=== PATIENT | male | born 1950 | race Caucasian/White ===

== ENCOUNTER 2019-02-13 13:43 | Inpatient (IN) | payer MEDICARE, OTHER ==
[~2019-02-13] VITALS: Ht 152.4 cm; Wt 99.1 kg
[2019-02-13] MEDS ORDERED: ATOR10 PO (14:31)
[2019-02-13] MEDS ORDERED: CETI5 PO (14:32)
[2019-02-13] MEDS ORDERED: CITA20 PO (14:32)
[2019-02-13] MEDS ORDERED: Vitamin D400 UNI2 PO (14:32)
[2019-02-13] MEDS ORDERED: EPIPEN0.3 MG/0.3 SC (14:33)
[2019-02-13] MEDS ORDERED: DOCU100 PO (14:33)
[2019-02-13] MEDS ORDERED: VITAMIN B-121000 MCG PO (14:33)
[2019-02-13] MEDS ORDERED: Flonase 0.05% N16 GM (14:34)
[2019-02-13] MEDS ORDERED: GABA400 PO (14:34)
[2019-02-13] MEDS ORDERED: FISH OIL 1,001000 MG PO (14:34)
[2019-02-13] MEDS ORDERED: OMEPRAZOLE20 MG PO (14:35)
[2019-02-13] MEDS ORDERED: ALLERGY EYE DRO10 M1 BOTHEYES (14:36)
[2019-02-13] MEDS ORDERED: IBUP600 PO (14:37)
[2019-02-13] MEDS ORDERED: Pseudoephedrine30 MG PO (14:37)
[2019-02-13] MEDS ORDERED: B-1100 MG PO (14:38)
[2019-02-13] MEDS ORDERED: TRAZ100 PO (14:38)
[2019-02-13] MEDS ORDERED: SENN187 PO (14:38)
[2019-02-13] MEDS ORDERED: ASPI325 PO (14:39)
[2019-02-13] MEDS ORDERED: VERA180ER PO (14:39)
[2019-02-13 15:31] LABS: BASOPHILS ABSOLUTE AUTO 0.04 K/mm3 (0.00-0.23); BASOPHILS PERCENT AUTO 1 % (0-2); EOSINOPHILS ABSOLUTE AUTO 0.09 K/mm3 (0.00-0.68); EOSINOPHILS PERCENT AUTO 1 % (0-6); Hemoglobin 12.6 g/dL (13.5-17.5); IMMATURE GRAN ABSOLUTE AUTO 0.01 K/mm3 (0.00-0.10); IMMATURE GRAN PERCENT AUTO 0 % (0-1); LYMPHOCYTES PERCENT AUTO 25 % (21-46); MONOCYTES ABSOLUTE AUTO 0.46 K/mm3 (0.16-1.47); MONOCYTES PERCENT AUTO 7 % (4-13); Mean Corpuscular HGB 32.4 pg (26.0-34.0); Mean Corpuscular HGB Conc 32.3 g/dL (31.5-36.5); Mean Corpuscular Volume 100 fL (80-100); Mean Platelet Volume 9.8 fL (9.1-12.4); NEUTROPHILS ABSOLUTE AUTO 4.64 K/mm3 (1.96-9.15); NEUTROPHILS PERCENT AUTO 67 % (41-73); Platelet Count 168 K/mm3 (150-400); RDW Coefficient Variation 14.5 % (11.7-14.2); Red Blood Cell Count 3.89 M/mm3 (4.30-5.90); White Blood Cell Count 6.94 K/mm3 (4.00-11.30)
[2019-02-13 16:52] LABS: Anion Gap 4 mmol/L (6-16); Blood Urea Nitrogen 20 mg/dL (8-24); Bun/Creatinine Ratio 16.3 (12.0-20.0); CO2, Blood 25 mmol/L (21-32); Calcium, Blood 8.4 mg/dL (8.5-10.1); Chloride, Blood 113 mmol/L (98-108); Creatinine, Blood 1.23 mg/dL (0.60-1.20); Glomerular Filtration Rate >60 (60-); Glucose, Blood 90 mg/dL (70-99); Potassium, Blood 4.1 mmol/L (3.5-5.5); Sodium, Blood 142 mmol/L (136-145)
[2019-02-13 17:57] LABS: International Normalized Ratio 0.98; Prothrombin Time Results 10.4 Sec (9.7-11.5)
[2019-02-13 22:00] LABS: CHOL/HDL RATIO 4.5; Cholesterol 203 mg/dL (50-200); HDL Cholesterol 45 mg/dL (>39); LDL/HDL RATIO 3.3; Low Density Lipoprotein Chol 151 mg/dL (0-110); Triglycerides 37 mg/dL (30-160); Very Low Density Lipoprot Chol 7 mg/dL (6-32)
[2019-02-14 04:21] LABS: Hematocrit 37.9 % (37.0-53.0); Hemoglobin 12.4 g/dL (13.5-17.5); Mean Corpuscular HGB 32.7 pg (26.0-34.0); Mean Corpuscular HGB Conc 32.7 g/dL (31.5-36.5); Mean Corpuscular Volume 100 fL (80-100); Mean Platelet Volume 10.4 fL (9.1-12.4); Platelet Count 151 K/mm3 (150-400); RDW Coefficient Variation 14.5 % (11.7-14.2); RDW Standard Deviation 53.7 fL (35.1-46.3); Red Blood Cell Count 3.79 M/mm3 (4.30-5.90); White Blood Cell Count 6.93 K/mm3 (4.00-11.30)
[2019-02-14 04:45] LABS: Anion Gap 7 mmol/L (6-16); Blood Urea Nitrogen 19 mg/dL (8-24); Bun/Creatinine Ratio 16.1 (12.0-20.0); CO2, Blood 26 mmol/L (21-32); Calcium, Blood 8.2 mg/dL (8.5-10.1); Chloride, Blood 110 mmol/L (98-108); Creatinine, Blood 1.18 mg/dL (0.60-1.20); Glomerular Filtration Rate >60 (60-); Glucose, Blood 97 mg/dL (70-99); Potassium, Blood 3.9 mmol/L (3.5-5.5); Sodium, Blood 143 mmol/L (136-145)
--- NOTE | 2019-02-14 05:42 | NUR ---
SHIFT SUMMARY PT SLEEPING IN ROOM COMFORTABLY. NO ACUTE CHANGES IN STATUS SINCE ADMIT. PT SLEPT WELL ON CPAP TOLERATED WELL T/O NIGHT. HEPARIN GTT STARTED UPON ARRIVAL, INFUSING IN PIV TO LAC AT 14U/KG/HR, AND 19.6ML/HR. PT HAD NO COMPLAINTS OF CP AFTER MEDICATIONS AFTER ARRIVAL. C/O HEADACHE, MEDICATED PER EMAR. RESP EVEN UNLABORED ON RA W/ SATS >95%. DENIES OTHER NEEDS AT THIS TIME. CALL LIGHT IN REACH. PT IND IN ROOM.
--- NOTE | 2019-02-14 10:48 | NUR ---
Echocardiogram completed.
--- NOTE | 2019-02-14 17:29 | NUR ---
PT AOX4 AND COOPERATIVE OF CARE. PT REPORTED START OF SHIFT A FEELING OF INDIGETSTION AND WAS DUE FOR NITRO PASTE. DUE TO LOW BP OF 94/54 DANELLE DECREASED DOSE FROM 2" TO 1" OF NITRO PASTE. PT DID NOT REPORT ANYMORE TIGHTNESS OR INDIGESTION FOR THE REST OF SHIFT. PT TREATED FOR HEADACHE PER EMAR. NO DISTRESS THROUGHOUT SHIFT AND TAKEN TO ANGIO AROUND 1710.
--- NOTE | 2019-02-14 18:39 | NUR ---
RECIEVED PT AT 1835. R WRIST BAND CHECKED NO BLEEDING SKINN SOFT AT CUFF. PT A0X4 AND COOPERATIVE OF CARE. FAMILY PRESENT AT BEDSIDE.
--- NOTE | 2019-02-15 00:30 | NUR ---
TR BAND FULLY DELFATED AT THIS TIME.
--- NOTE | 2019-02-15 06:26 | NUR ---
SHIFT SUMMARY PT SLEEPING IN ROOM COMFORTABLY AT THIS TIME. NO ACUTE CHANGES IN STATUS T/O NIGHT. TR BAND WAS MONITORED AND FULLY DEFLATED BY 0030. SITE WNL, NO HEMATOMAS NOTED, SENSATION INTACT. PT DENIES PAIN TO SITE. PT SLEPT WELL T/O NIGHT, DENIED ANY PAIN AFTER MEDICATION FOR SEBASTIAN. RESP EVEN UNLABORE DON RA W/ SATS >92%. PT INDEPENDENT IN ROOM. CALL LIGHT IN REACH.
--- NOTE | 2019-02-15 07:45 | NUR ---
PT QUITE PLEASANT COOP TALKATIVE. A/O. DENIES PAIN. H/R REG, NO MURMER NOTED. PER TELE, S DOMINIQUE BBB AT 56. LUNGS CLEAR, RESP EASY, UNLABORED. ON RA. BT X4 LAST BM THIS AM. VOIDS PER BATHROOM. INDEPENDANT. PT TR BAND SITE CDI, COVERED WITH CLEAR DRESSING. LIGHT REDNESS NOTED. FAY RN STATES HAS NOT CHANGED. BED IN LOW POSITION, CALL LITE IN REACH, CALLS APPROP.
[2019-02-15] MEDS ORDERED: AMLO5 PO (10:25)
--- NOTE | 2019-02-15 12:43 | NUR ---
1200 PT C/O BEING LIGHT HEADED. RECHECK V/S. STABLE. TELE REMOVED FOR DISCHARGE. HEART MONITOR HAS BEEN PLACED BY H/C. PT PUSHED BUTTON TO RECORD. CALLED DR MCCLENDON. F STATES WITH THE AORTIC STENOSIS AND PENDING VALVE, SYMPTOS ARE TO BE EXPECTED. NO NEW ORDERS, OKAY DISCHARGE.
--- NOTE | 2019-02-15 13:34 | NUR ---
DISCHARGE REVIEWED WITH PT . HE VERBALIZED UNDERSTANDING OF MEDS AND APPOINTMENTS. READ THROUGH D/C ON RADIAL SITE. PT VERBALIZED UNDERSTANDING. ARM BOARD IN PLACE. IV X2 REMOVED INTACT. TELE REMOVED. PT WHEELED TO DOOR BY [id number]
== END 2019-02-15 13:36 | disposition home or self-care (01) | DRG 282 ==
LOC: ER 13:43 → PCU 17:56
PROVIDERS: Emergency Medicine; Nurse Practitioner Acute Care; ADMIT Hospitalist
PROC: B2111ZZ Fluoroscopy of Multiple Coronary Arteries using Low Osmolar Contrast (ICD-10-PCS; principal; 2019-02-14)
DX: I21.A1 Myocardial infarction type 2 (principal); I10 Essential (primary) hypertension; I35.0 Nonrheumatic aortic (valve) stenosis; G47.33 Obstructive sleep apnea (adult) (pediatric); E78.5 Hyperlipidemia, unspecified; I48.0 Paroxysmal atrial fibrillation; I44.7 Left bundle-branch block, unspecified; K21.9 Gastro-esophageal reflux disease without esophagitis; G89.4 Chronic pain syndrome; N40.0 Benign prostatic hyperplasia without lower urinary tract symptoms; Z79.82 Long term (current) use of aspirin; I44.0 Atrioventricular block, first degree
CPT/HCPCS: 36415; 80048; 80061; 83735; 84484; 85025; 85027; 85610; 85730; 93005; 93010; 93306; 93454; 94660; 94762; 99152; 99153; 99285-25; A9270; C1769; C1894; J1644; J2250; J3010; J7030; Q9967

== ENCOUNTER 2020-09-22 09:11 | Inpatient (IN) | payer MEDICARE, OTHER ==
[~2020-09-22] VITALS: Ht 165.1 cm; Wt 109.3 kg
[~2020-09-22 09:11] MED LIST: ALLERGY EYE DRO10 M1 BOTHEYES; AMLO5 PO; ASPI325 PO; ATOR10 PO; B-1100 MG PO; CITA20 PO; DOCU100 PO; EPIPEN0.3 MG/0.3 SC; FISH OIL 1,001000 MG PO; Flonase 0.05% N16 GM; GABA400 PO; IBUP600 PO; OMEPRAZOLE20 MG PO; Pseudoephedrine30 MG PO; SENN187 PO; TRAZ100 PO; VERA180ER PO; VITAMIN D31000 UNI1 PO; Vitamin B-121000 MCG PO; ZYRTEC10 M2 PO
[2020-09-22] MEDS ORDERED: DOXY100 PO (09:38)
[2020-09-22 09:48] LABS: Hematocrit 44.2 % (37.0-53.0); Hemoglobin 14.3 g/dL (13.5-17.5); Mean Corpuscular HGB 31.2 pg (26.0-34.0); Mean Corpuscular HGB Conc 32.4 g/dL (31.5-36.5); Mean Corpuscular Volume 97 fL (80-100); Mean Platelet Volume 10.1 fL (9.1-12.4); Platelet Count 135 K/mm3 (150-400); RDW Coefficient Variation 13.4 % (11.7-14.2); RDW Standard Deviation 48.1 fL (35.1-46.3); Red Blood Cell Count 4.58 M/mm3 (4.30-5.90); White Blood Cell Count 4.84 K/mm3 (4.00-11.30)
[2020-09-22 10:00] LABS: Alanine Aminotransfer (ALT/SGP 30 U/L (12-78); Albumin, Blood 3.1 g/dL (3.4-5.0); Albumin/Globulin Ratio 0.7 (0.8-1.8); Alk Phos 56 U/L (50-136); Anion Gap 7 mmol/L (6-16); Aspartate Aminotrans (AST/SGOT 75 U/L (12-37); Bilirubin, Total 0.5 mg/dL (0.1-1.0); Blood Urea Nitrogen 21 mg/dL (8-24); Bun/Creatinine Ratio 17.6 (12.0-20.0); CO2, Blood 24 mmol/L (21-32); Calcium, Blood 8.3 mg/dL (8.5-10.1); Chloride, Blood 106 mmol/L (98-108); Creatinine, Blood 1.19 mg/dL (0.60-1.20); Globulin, Blood 4.2 g/dL (2.2-4.0); Glomerular Filtration Rate >60 (60-); Glucose, Blood 125 mg/dL (70-99); Sodium, Blood 137 mmol/L (136-145); Total Protein, Blood 7.3 g/dL (6.4-8.2)
[2020-09-22 10:07] LABS: BAND PERCENT MAN 2 % (0-8); BASOPHILS ABSOLUTE MAN 0.04 K/mm3 (0.00-0.23); BASOPHILS PERCENT MAN 1 % (0-2); EOSINOPHILS PERCENT MAN 0 % (0-6); LYMPHOCYTES ABSOLUTE MAN 0.62 K/mm3 (0.84-5.20); LYMPHOCYTES PERCENT MAN 13 % (21-46); MONOCYTES ABSOLUTE MAN 0.09 K/mm3 (0.16-1.47); MONOCYTES PERCENT MAN 2 % (4-13); NEUTROPHILS ABSOLUTE MAN 4.06 K/mm3 (1.96-9.15); SEG NEUTROPHILS PERCENT MAN 82 % (41-73); TOTAL CELLS COUNTED 100
[2020-09-22] MEDS ORDERED: KLOR-CON 1010 MEQ PO (11:38)
[2020-09-22] MEDS ORDERED: FUROSEMIDE20 MG PO (11:39)
[2020-09-22] MEDS ORDERED: MIRALAX17 GM PO (11:40)
[2020-09-22] MEDS ORDERED: DOCUSATE SODIU250 MG PO (11:40)
[2020-09-22] MEDS ORDERED: OMEPRAZOLE MAGN20 M1 PO (11:41)
[2020-09-22] MEDS ORDERED: METOPROLOL TART25 MG PO (11:41)
[2020-09-22] MEDS ORDERED: NEURONTIN400 M1 PO (11:41)
--- NOTE | 2020-09-22 15:18 | NUR ---
PT ARRIVED IN THE UNIT FROM ED VIA STRETCHER, REPORT RECEIVED FROM GUTIERREZ MENCHACA. PT WAS ABLE TO STAND TRANSFER SBA TO BED, GETS EASILY SOB/ WITH MINIMAL EXERTION DESATS TO LOW 80'S, RECOVERS BACK EASILY CURRENTLY AT 6L OF O2 VIA NC. PT REFUSES TO PRONE DUE TO BACK PAIN THAT REQUIRES SURGERY SOON BUT PT WAS ABLE TO TOLERATE ON HIS LEFT SIDE WITH PILLOWS ON BACK HOB ATLEAST 45 DEGREES. PT IS ALERT AND ORIENTED AT BASELINE, COOPERATIVE. VITALS HRR NSR AT 70'S, BP SYSTOLIC 130'S, AFEBRILE. NS RUNNING AT 75MLS/HR X1 BAG. PT HAS WOUND DRESSING ON THE BACK OF LEFT HEEL, PT STATED ITS SURGICAL RELATED. WILL ASSESS AND TAKE PICS BEFORE THE ENDS OF SHIFT. PT IS NOW RESTING IN BED WAS INSTRUCTED TO USE CALL LIGHT FOR HELP, BED ALARM ON FOR SAFETY. WILL MONITOR PT UNTIL THE END OF SHIFT
--- NOTE | 2020-09-22 18:28 | NUR ---
PT WAS SWITCH TO HI LIZA NASAL CANNULA CURRENTLY AT 12L AT THIS TIME, PT DESATURATES PRETTY QUICK WITH MINIMAL EXERTION, PT NOW TOLERATING 12L SATS REMAINED ABOVE 90%, PT HAS DRY NON PRODUCTIVE COUGH, HOB ELEVATED ABOVE 45 DEGREES. PT IS NOW EATING DINNER WAS INSTRUCTED TO TAKE HIS TIME TAKE SOME DEEP BREATHS WITH EACH BITE. PT IS COMPLIANT WITH INSTRUCTIONS. NO OTHER ISSUES REPORTED. WILL MONITOR PT UNTIL END OF SHIFT.
[2020-09-23 04:37] LABS: BASOPHILS PERCENT AUTO 0 % (0-2); EOSINOPHILS PERCENT AUTO 0 % (0-6); Hematocrit 37.5 % (37.0-53.0); Hemoglobin 12.5 g/dL (13.5-17.5); IMMATURE GRAN ABSOLUTE AUTO 0.02 K/mm3 (0.00-0.10); IMMATURE GRAN PERCENT AUTO 0 % (0-1); LYMPHOCYTES ABSOLUTE AUTO 0.98 K/mm3 (0.84-5.20); LYMPHOCYTES PERCENT AUTO 17 % (21-46); MONOCYTES ABSOLUTE AUTO 0.27 K/mm3 (0.16-1.47); MONOCYTES PERCENT AUTO 5 % (4-13); Mean Corpuscular HGB Conc 33.3 g/dL (31.5-36.5); Mean Corpuscular Volume 96 fL (80-100); Mean Platelet Volume 9.9 fL (9.1-12.4); NEUTROPHILS ABSOLUTE AUTO 4.42 K/mm3 (1.96-9.15); NEUTROPHILS PERCENT AUTO 78 % (41-73); Platelet Count 146 K/mm3 (150-400); RDW Coefficient Variation 13.7 % (11.7-14.2); RDW Standard Deviation 48.4 fL (35.1-46.3); Red Blood Cell Count 3.91 M/mm3 (4.30-5.90); White Blood Cell Count 5.69 K/mm3 (4.00-11.30)
[2020-09-23 04:59] LABS: Alanine Aminotransfer (ALT/SGP 27 U/L (12-78); Albumin, Blood 2.5 g/dL (3.4-5.0); Albumin/Globulin Ratio 0.7 (0.8-1.8); Alk Phos 43 U/L (50-136); Anion Gap 7 mmol/L (6-16); Aspartate Aminotrans (AST/SGOT 76 U/L (12-37); Bilirubin, Total 0.4 mg/dL (0.1-1.0); Blood Urea Nitrogen 24 mg/dL (8-24); Bun/Creatinine Ratio 22.9 (12.0-20.0); CO2, Blood 22 mmol/L (21-32); Calcium, Blood 7.7 mg/dL (8.5-10.1); Chloride, Blood 110 mmol/L (98-108); Creatinine, Blood 1.05 mg/dL (0.60-1.20); Globulin, Blood 3.6 g/dL (2.2-4.0); Glomerular Filtration Rate >60 (60-); Glucose, Blood 124 mg/dL (70-99); Magnesium, Blood 2.1 mg/dL (1.6-2.4); Potassium, Blood 4.1 mmol/L (3.5-5.5); Sodium, Blood 139 mmol/L (136-145); Total Protein, Blood 6.1 g/dL (6.4-8.2)
--- NOTE | 2020-09-23 05:58 | NUR ---
SHIFT SUMMARY PT RESTED WELL THROUGH NIGHT. ALERT AND ORIENTED - ABLE TO MAKE NEEDS KNOWN. TELE NSR. PLACED ON BIPAP D/T WORSENING RESP STATUS. DESATTING TO 70%, PLACED ON CPAP, BUT NOT RECOVERING/MAINTAINING SATS. RESPIRATORY PLACD PT ON BIPAP - PT SATS REMAINED IN LOW 90'S%. STAND AT BEDSIDE TO USE URINAL - BEDPAN FOR BM. NO C/O PAIN. VSS. CALL LIGHT WITHIN REACH, BED IN LOWEST POSITION. WILL CONTINUE TO MONITOR.
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
[2020-09-24 03:56] LABS: Hemoglobin 13.4 g/dL (13.5-17.5); Mean Corpuscular HGB Conc 32.7 g/dL (31.5-36.5); Mean Corpuscular Volume 98 fL (80-100); Platelet Count 184 K/mm3 (150-400); RDW Coefficient Variation 13.7 % (11.7-14.2); RDW Standard Deviation 49.8 fL (35.1-46.3); Red Blood Cell Count 4.19 M/mm3 (4.30-5.90); White Blood Cell Count 4.54 K/mm3 (4.00-11.30)
[2020-09-24 04:15] LABS: Albumin, Blood 2.5 g/dL (3.4-5.0); Anion Gap 6 mmol/L (6-16); Blood Urea Nitrogen 27 mg/dL (8-24); CO2, Blood 24 mmol/L (21-32); Calcium, Blood 8.4 mg/dL (8.5-10.1); Chloride, Blood 111 mmol/L (98-108); Glomerular Filtration Rate >60 (60-); Glucose, Blood 107 mg/dL (70-99); Phosphorus, Blood 3.2 mg/dL (2.5-4.9); Potassium, Blood 4.3 mmol/L (3.5-5.5); Sodium, Blood 141 mmol/L (136-145)
[2020-09-24 05:29] LABS: PCO2 Arterial 30.5 mmHg (35-45); PO2 Arterial 72.1 mmHg (80-100); pH Blood Arterial 7.46 (7.35-7.45)
--- NOTE | 2020-09-24 05:41 | NUR ---
SHIFT SUMMARY PT SLEPT T/O SHIFT. PT WORE BIPAP T/O SHIFT AT 80% FIO2. PT ABLE TO TOLERATE STANDING TO USE COMMODE. PT HAD DIARRHEA ONCE AT BEGINNING OF SHIFT. PT ABLE TO TURN SELF IN BED NEEDED. HR REMAINED STABLE. OXYGEN ABOVE 92%. BP STABLE. PT REPORTS NO CP OR PRESSURE. PT ALERT AND ORIENTED X 4. WILL CONTINUE TO MONITOR UNTIL REPORT GIVEN TO DAYSHIFT RN.
--- NOTE | 2020-09-24 16:07 | NUR ---
TRANSFER IN PT TRANSFERED TO ICU 11 AT 1535 VIA BED. PT IS AWAKE, ALERT, AND ORIENTED. PT DENIES SOB AT REST. PT ON AIRVO AT 60L, FIO2 72%. VITAL SIGNS STABLE. PT WITH HARSH COUGH AND COARSE LS IN BASES. PT COMPLAINS OF CHRONIC BACK PAIN AND NUMBNESS TO BLE'S. PT MAEW. IV TO LEFT AC SALINE LOCKED. WILL CONTINUE TO MONITOR.
--- NOTE | 2020-09-24 18:15 | NUR ---
SHIFT SUMMARY NO ACUTE CHANGES THIS AFTERNOON. PT REMAINS AWAKE, ALERT, AND ORIENTED. PT VITAL SIGNS REMAINS STABLE WITH PT AT REST. PT WITH SPO2 DROPPING TO 70'S WITH COUGHING FITS. OTHERWISE SPO2 REMAINS >90% WITH PT ON BIPAP 27/07, FIO2 75%. POWERGLIDE TO NEENA PLACED, SALINE LOCKED AT THIS TIME. PT WITH URINAL AT BEDSIDE. NO FAMILY IN ROOM. WILL CONTINUE TO MONITOR AND REPORT OFF TO ONCOMING RN.
--- NOTE | 2020-09-24 20:53 | NUR ---
ASSUMPTION OF CARE PT RESTING IN BED, AROUSES TO VERBAL STIMULI, ORIENTED TO SELF, LOCATION, EVENT AND FOLLOWING DIRECTIONS. PT ON BIPAP /, FIO2 75%, TOLERATES BREAKS FROM BIPAP ON AIRVO 60L AND FIO2 92%. MONITOR SHOWS SINUS RHYTHM WITH BBB, HR 60'S, BP STABLE. POOR PO INTAKE, TOLERATING FLUIDS, SWALLOWS PILLS WHOLE. PT TO BS, SBA, WITH LOOSE STOOL, VOIDS INDEPENDENTLY USING URINAL AT BEDSIDE. PT REPORTS MILD LOW BACK PAIN, RELEIVED WITH REPOSITIONING. CALL LIGHT WITHIN REACH.
[2020-09-25 04:00] LABS: BASOPHILS ABSOLUTE AUTO 0.01 K/mm3 (0.00-0.23); BASOPHILS PERCENT AUTO 0 % (0-2); EOSINOPHILS ABSOLUTE AUTO 0.01 K/mm3 (0.00-0.68); EOSINOPHILS PERCENT AUTO 0 % (0-6); Hemoglobin 13.3 g/dL (13.5-17.5); Mean Corpuscular HGB 31.4 pg (26.0-34.0); Mean Corpuscular HGB Conc 32.4 g/dL (31.5-36.5); Mean Corpuscular Volume 97 fL (80-100); Mean Platelet Volume 9.8 fL (9.1-12.4); Platelet Count 219 K/mm3 (150-400); RDW Coefficient Variation 13.5 % (11.7-14.2); RDW Standard Deviation 48.1 fL (35.1-46.3); Red Blood Cell Count 4.24 M/mm3 (4.30-5.90); White Blood Cell Count 5.93 K/mm3 (4.00-11.30)
[2020-09-25 04:01] LABS: IMMATURE GRAN ABSOLUTE AUTO 0.04 K/mm3 (0.00-0.10); IMMATURE GRAN PERCENT AUTO 1 % (0-1); LYMPHOCYTES ABSOLUTE AUTO 1.32 K/mm3 (0.84-5.20); LYMPHOCYTES PERCENT AUTO 22 % (21-46); MONOCYTES ABSOLUTE AUTO 0.25 K/mm3 (0.16-1.47); MONOCYTES PERCENT AUTO 4 % (4-13); NEUTROPHILS PERCENT AUTO 72 % (41-73)
[2020-09-25 04:22] LABS: Alanine Aminotransfer (ALT/SGP 30 U/L (12-78); Albumin, Blood 2.6 g/dL (3.4-5.0); Albumin/Globulin Ratio 0.7 (0.8-1.8); Alk Phos 55 U/L (50-136); Anion Gap 6 mmol/L (6-16); Aspartate Aminotrans (AST/SGOT 70 U/L (12-37); Bilirubin, Total 0.6 mg/dL (0.1-1.0); Blood Urea Nitrogen 24 mg/dL (8-24); Bun/Creatinine Ratio 24.1 (12.0-20.0); CO2, Blood 25 mmol/L (21-32); Calcium, Blood 8.3 mg/dL (8.5-10.1); Chloride, Blood 109 mmol/L (98-108); Globulin, Blood 3.5 g/dL (2.2-4.0); Glomerular Filtration Rate >60 (60-); Glucose, Blood 90 mg/dL (70-99); Magnesium, Blood 2.1 mg/dL (1.6-2.4); Phosphorus, Blood 3.2 mg/dL (2.5-4.9); Potassium, Blood 4.3 mmol/L (3.5-5.5); Sodium, Blood 140 mmol/L (136-145); Total Protein, Blood 6.1 g/dL (6.4-8.2)
--- NOTE | 2020-09-25 06:25 | NUR ---
SHIFT SUMMARY PT RESTED T/O SHIFT, AROUSES TO VERBAL STIMULI, REMAINS ORIENTED x4. PT REMAINS ON BIPAP 16/11 FIO2 90-100%, TOLERATING ONLY BREIF 10-15 MINUTE BREAKS ON THE AIRVO @ 60L FIO2 93%. PT CONTINUES TO HAVE DRY HACKING COUGH, OCCASSIONAL COUGHING FITS IN WHICH O2 SATURATIONS DECREASE TO 50'S WITH SLOW RECOVERY, PRN COUGHING MEDICATIONS PROVIDED WITH SOME RELIEF. PT TOLERATING PO FLUIDS, VOIDING IN URINAL WITH ASSISTANCE. PT DEL ROSARIO, REPOSITIONS SELF IN BED. CALL LIGHT WITHIN REACH.
--- NOTE | 2020-09-25 08:00 | NUR ---
ASSUMED CARE REPORT RECIEVED. PT IS INITIALLY RESTING IN BED WITH BIPAP IN PLACE. PT UP TO BSC WITH MANAGER OF EMPLOYEE RELATIONS ASSISTANCE, THEN UP TO BEDSIDE CHAIR. PT IS ALERT AND ORIENTED. PT ANSWERS QUESTIONS APPROPRIATELY. PT COMPLAINS OF CHRONIC DISCOMFORT TO LOWER BACK. PT PLACED ON AIRVO AT THIS TIME, 60L, FIO2 80%. VITAL SIGNS STABLE WHILE AT REST. PT DESATURATES TO 70'S WITH ANY EXERTION WITH LONG RECOVERY. POWERGLIDE AND IV SALINE LOCKED. WILL CONTINUE TO MONITOR.
--- NOTE | 2020-09-25 17:15 | NUR ---
SHIFT SUMMARY NO ACUTE CHANGES THIS SHIFT. PT HAS REMAINED ALERT AND ORIENTED. PT HAS REMAINED UP IN BEDSIDE CHAIR THROUGHOUT THE SHIFT. PT UP OUT OF CHAIR TO BEDSIDE COMMODE WITH MINIMAL ASSISTANCE. PT HAS ALTERNATED BETWEEN AIRVO AT 60L, FIO2 80% AND BIPAP 16/11, FIO2 70%. VITAL SIGNS HAVE REMAINED STABLE. PT HAS PARTICIPATED IN CARE AND ADL'S WELL. POWERGLIDE SALINE LOCKED. PT WITH POOR APPETITE, BUT TAKES PO FLUIDS WELL WHEN ON AIRVO. PT FAMILY UPDATED VIA PHONE TODAY. WILL CONTINUE TO MONITOR AND REPORT OFF TO ONCOMING RN.
--- NOTE | 2020-09-25 20:08 | NUR ---
ASSUMPTION OF CARE PT RESTING IN CHAIR, WATCHING TELEVISION, ORIENTED x4, ON AIRVO 60L AND FIO2 76%, PT BEGAN COUGHING WITH OXYGEN DESATURATIONS INTO THE 60'S-70'S, FIO2 INCREASED TO 93%, PT SLOW TO RECOVER. MONITOR SHOWS SINUS RHYTHM WITH BBB, HR 60'S, HYPERTENSION NOTED, SCHEDULED MEDICATIONS AVAILABLE. PT DENIES GI/ PROBLEMS, POOR PO INTAKE. CALL LIGHT WITHIN REACH.
[2020-09-26 04:10] LABS: BASOPHILS ABSOLUTE AUTO 0.01 K/mm3 (0.00-0.23); BASOPHILS PERCENT AUTO 0 % (0-2); EOSINOPHILS PERCENT AUTO 0 % (0-6); Hematocrit 40.7 % (37.0-53.0); Hemoglobin 13.4 g/dL (13.5-17.5); Mean Corpuscular HGB 31.3 pg (26.0-34.0); Mean Corpuscular HGB Conc 32.9 g/dL (31.5-36.5); Mean Corpuscular Volume 95 fL (80-100); Platelet Count 220 K/mm3 (150-400); RDW Coefficient Variation 13.3 % (11.7-14.2); RDW Standard Deviation 47.1 fL (35.1-46.3); Red Blood Cell Count 4.28 M/mm3 (4.30-5.90); White Blood Cell Count 6.69 K/mm3 (4.00-11.30)
[2020-09-26 04:15] LABS: IMMATURE GRAN ABSOLUTE AUTO 0.12 K/mm3 (0.00-0.10); IMMATURE GRAN PERCENT AUTO 2 % (0-1); LYMPHOCYTES ABSOLUTE AUTO 1.05 K/mm3 (0.84-5.20); LYMPHOCYTES PERCENT AUTO 16 % (21-46); MONOCYTES ABSOLUTE AUTO 0.28 K/mm3 (0.16-1.47); MONOCYTES PERCENT AUTO 4 % (4-13); NEUTROPHILS ABSOLUTE AUTO 5.23 K/mm3 (1.96-9.15); NEUTROPHILS PERCENT AUTO 78 % (41-73)
[2020-09-26 04:41] LABS: Alanine Aminotransfer (ALT/SGP 47 U/L (12-78); Albumin, Blood 2.6 g/dL (3.4-5.0); Albumin/Globulin Ratio 0.7 (0.8-1.8); Alk Phos 65 U/L (50-136); Anion Gap 8 mmol/L (6-16); Aspartate Aminotrans (AST/SGOT 73 U/L (12-37); Bilirubin, Total 0.6 mg/dL (0.1-1.0); Blood Urea Nitrogen 23 mg/dL (8-24); Bun/Creatinine Ratio 26.2 (12.0-20.0); CO2, Blood 23 mmol/L (21-32); Calcium, Blood 8.5 mg/dL (8.5-10.1); Chloride, Blood 109 mmol/L (98-108); Creatinine, Blood 0.88 mg/dL (0.60-1.20); Globulin, Blood 3.7 g/dL (2.2-4.0); Glomerular Filtration Rate >60 (60-); Glucose, Blood 150 mg/dL (70-99); Potassium, Blood 4.6 mmol/L (3.5-5.5); Sodium, Blood 140 mmol/L (136-145); Total Protein, Blood 6.3 g/dL (6.4-8.2)
--- NOTE | 2020-09-26 07:00 | NUR ---
SHIFT SUMMARY NO ACUTE CHANGES THIS SHIFT, PT PLACED ON BIPAP FOR SLEEPING, CHANGED TO CPAP 12 PER RT RELATED HIGH TITAL VOLUMES AND INCREASED RESPIRATORY RATE, FIO2 INCREASED TO 100%, PT SLEPT WELL T/O SHIFT. PT CONTINUES TO HAVE DRY, HARSH COUGH WHILE AWAKE WITH 02 DESATURATIONS TO 70'S, SLOW RECOVERY. MONITOR SHOWS SINUS RHYTHM WITH HR 50'S-60'S, HYPERTENSION NOTED. CALL LIGHT WITH IN REACH. REPORT GIVEN TO DINORAH MENCHACA.
--- NOTE | 2020-09-26 08:00 | NUR ---
PT RECEIVED FROM IRWIN, ON CPAP AT 100%. PT TOLERATING WELL. SALINE LOCK IN PLACE FOR LAC AND POWERGLIDE IN NEENA. URINAL AT BEDSIDE, WATCHING TELEVISION. WANTS TO EAT, STRUGGLING WITH KEEPING HIS SATS UP ON AIRVO.
--- NOTE | 2020-09-26 15:42 | NUR ---
MR. WOODARD HAS BEEN ON AIRVO FOR THE AFTERNOON, TO ENJOY HIS LUNCH. HE IS ABLE TO MAINTAIN HIS SATURATIONS AT >85%. HE DECIDED TO USE THE BSC AND TO PUT THE CPAP BACK ON. WHEN ON THE CPAP, HE IMMEDIATELY CLIMBED TO 100% SATURATIONS. DISCUSSED WITH RT TI TURNING DOWN HIS FI02. WE HAVE ADJUSTED TO 85% SATS ARE MAINTAINING AT 99%
--- NOTE | 2020-09-26 17:28 | NUR ---
MR WOODARD HAS DONE FAIRLY WELL TODAY. HE HAS BOUNCED BACK AND FORTH BETWEEN THE AIRVO @ 60L AND THE CPAP AT 100%. HE WAS DOING SO WELL THAT THE CPAP WAS DROPPED TO 85% AND HE CONTINUED TO TOLERATE WELL. ABOUT 20 MINUTES AGO, HE FELL ASLEEP IN THE CHAIR AND HIS SATS HAVE DROOPED SOME. WILL CONTINUE TO WATCH AND ADJUST NECESSARY. HIS LUNGS CONTINUE TO SOUND TIGHT, BUT NO RALES OR RHONCHI. HE HAS BEEN COUGHING T/O THE DAY, WITH LESS THAN DIME SIZED RETURN. ONE WAS BLOOD TINGED, LOOKED FRESH, DISCUSSED HIS CONCERNS. HE HAS BEEN HUNGRY TODAY AND HE HAS ALSO BEEN UP TO THE BSC TWICE AND THE CHAIR MOST OF THE AFTERNOON. WILL CONTINUE TO WATCH SATS AND ADJUST CPAP NECESSARY.
--- NOTE | 2020-09-26 22:00 | NUR ---
ASSUMPTION OF CARE PT RESTING IN CHAIR ON CPAP 14 FIO2 80%. PT WITH INCREASED CPAP DEPENDENCE, DECREASED ACTIVIY TOLERANCE AND NOTABLE RESPIRATORY DISRESS AND AIR HUNGER WITH COUGHING FITS AND SLOW RECOVERY OF OXYGEN SATURATIONS. PT WITH IMPROVED APPETITE BUT REPORTS DECREASED ENERGY. MONITOR SHOWS SINUS RHYTHM WITH HR 60'S, HYPERTENSION NOTED WITH SBP 150'S-160'S. PT CONTINUES TO BE SBA TO CHAIR/BSC. CALL LIGHT WITHIN REACH, PT USING APPROPRIATELY.
--- NOTE | 2020-09-27 01:00 | NUR ---
02 SATURATIONS DECREASING TO 82-85% WITH CPAP 14 FIO2 100%, RT TO ROOM, CPAP MASK CHANGED TO FULL FACE MASK AND PRESSURE SEETINGS CHANGE TO 16.
--- NOTE | 2020-09-27 06:50 | NUR ---
SHIFT SUMMARY PT REMAINS ON CPAP T/O NIGHT, PRESSURE SET TO 16 AND FIO2 100%, RESTED WELL THROUGH SHIFT, CONTINUES TO HAVE COUGHING FITS NOT WELL MANAGED WITH AVAILABLE COUGH SUPPRESANTS. PT TOLERATED ONLY SHORT BREAK FROM CPAP THIS AM FOR MEDICATION ADMINISTRATION AND ORAL CARE. PT APPEARS MORE FATIGUED THIS AM AND WITHDRAWN. MONITOR SINUS RHYTHM WITH HR 50'S-60'S, BP STABLE. CALL LIGHT WITHIN REACH, PT USING APPROPRIATELY.
--- NOTE | 2020-09-27 08:28 | NUR ---
PT RECEIVED FROM IRWIN, ASLEEP WHEN I WALKED IN THE ROOM. ON FACE MASK CPAP AT 100%, FEELS SHORT OF BREATH, "WINDED". ASKED TO GET UP TO BSC. VERY LONG PROCESS, SATS WERE GOOD, COULDN'T "CATCH HIS BREATH". CONTINUES TO HAVE DRY COUGH THAT IRRITATES HIM. CONTINUES WITH LABORED BREATHING, SATS GOOD. R/T ADJUST MASK, HE COUGHS, MASK MOVES. PT BACK TO BED WITH MUCH EFFORT. CRYING OUT, "CAN'T CATCH MY BREATH", SATS REMAIN IN THE 90'S. R/T ADJUSTED FI02 TO 80%. PT STILL WITH LABORED BREATHING, LENGTHY RECOVERY POST GETTING UP. ENCOURAGED TO USE URINAL AND NOT GET OUT OF BED FOR NOW. ASKED IF HE WOULD BE WILLING TO HAVE A TUBE IN HIS THROAT WITH A MACHINE TO HELP HIM BREATHE, SAID HE WILL. WANTS TO TALK TO HIS . WILL DISCUSS CONDITION WITH .
--- NOTE | 2020-09-27 09:30 | NUR ---
HERE, ALERTED HIM TO PATIENTS STATUS, AM MEDS HELD D/T RESP.DISTRESS, NO LABS.
--- NOTE | 2020-09-27 10:17 | NUR ---
IN PT ROOM, ORDERS FOR MORPHINE 2MG IV TO BE GIVEN. DISCUSSED WITH PATIENT TRYING TO AVOID THE "MACHINE" TO HELP HIM BREATHE. GOING TO TRY TO HELP HIM RELAX A LITTLE. ALSO, TURNED DOWN HIS FIO2 TO 70%.
--- NOTE | 2020-09-27 11:02 | NUR ---
PT RECEIVED THE MORPHINE, WAS RESTING, SATS DROPPED TO MID 80S. FIO2 BACK UP TO 80%, PT COUGHING, MOANING WITH RESPIRATION. SATS 90%
--- NOTE | 2020-09-27 11:34 | NUR ---
PT PREPARING FOR VENTILATOR PLACEMENT, SPOKE WITH .
[2020-09-27 12:49] LABS: Source, Urine Catheter
[2020-09-27 12:52] LABS: Bilirubin, Urine Neg (Neg); Blood, Urine 1+ (Neg); Glucose Qualitative, Urine Neg (Neg); Ketones, Urine Neg (Neg); Leukocyte Esterase, Urine Neg (Neg); Nitrite, Urine Neg (Neg); Protein, Urine 1+ (Neg); Specific Gravity, Urine 1.015 (1.003-1.022); Urobilinogen, Urine NORM (Normal)
--- NOTE | 2020-09-27 13:00 | NUR ---
SUMMARY OF RAPID SEQUENCE INTUBATION IN ROOM AT 1135, 1136, VERSED 2MG IV. 1140-PROPOFOL 100MG IV. 1142-ROCURONIUM 20MG IV. 1146-NASAL TRUMPET/BAGGING SATS 30'S. 1155-8.0 ETT, 23 @TEETH, VENT SET AT 16/500/100/5. 1158- ROCURONIUM 30MG 1200-RESTRAINTS APPLIED. 1201-PROPOFOL GTT TO 50MCG/KG/MIN. NIMBEX GTT STARTED AT 1220-BIS 85, TOF 4/4. 1230-RESTRAINTS DC'D. PT RESTING QUIETLY AT THIS TIME.
[2020-09-27 13:02] LABS: Appearance, Urine Clear (Clear); Bacteria Rare /hpf; Color, Urine Yellow (P-Yellow); Red Blood Cells, Urine 0-2 /hpf (0-2); Squamous Epithelial Cells Not Seen /hpf (Few); White Blood Cells, Urine 0-2 /hpf (0-5)
--- NOTE | 2020-09-27 17:55 | NUR ---
DAHLIA HAS HAD A ROUGH DAY. HE BEGAN THE DAY ON THE CPAP FACE MASK, AT 16 AND 100%. HE CONTINUALLY FELT LIKE HE COULDN'T CATCH HIS BREATH, THAT HE WAS OUT OF AIR. GETTING UP TO THE BSC WAS EXHAUSTING FOR HIM. HE RESTED SLIGHTLY WITH A BIT OF MORPHINE FROM . AFTER THAT, AROUND 1100 WE PREPARED TO INTUBATE HIM. WE DISCUSSED THIS WITH HIM AND HE AGREED. HE SPOKE WITH HIS ON THE PHONE. HE HAD A RSI WITH AN 8.0 TUBE PLACED, HE IS ON PROPOFOL @50, NIMBEX @ 2, FENTANYL @ 50 MCG/HR. HE WAS PROFUSELY DIAPHORETIC, SO WE GAVE HIM A BEDBATH AT 1730. HE HAS BEEN UNABLE TO RAISE HIS SATS FROM THE 70S. HE IS AT AC 16,TV 420, O2 100, AND PEEP 14. PHONE CALL TO TO CONSIDER PRONING.
--- NOTE | 2020-09-27 18:19 | NUR ---
CALLED AND INFORMED THAT PATIENT HR DROPPED TO THE 30S. STATED HE WILL BE HERE IN 10 MINUTES. CHARGE NURSE, CORDELL PULLED ATROPINE AND PLACED AT BEDSIDE. RT INFORMED THEY CAN INCREASE PEEP TO 16.
--- NOTE | 2020-09-27 18:21 | NUR ---
ORDERS RECEIVED TO PRONE PATIENT. THREE PERSON TRANSFER TO PRONE POSITION WITH RT AT THE AIRWAY. PT HAD MOMENTARY BRADYCARDIA, NO TREATMENT NECESSARY. PT HAS REGAINED SATURATIONS OF 92%.
--- NOTE | 2020-09-27 20:30 | NUR ---
ASSUMPTION OF CARE PT INTUBATED, SEDATED AND PARALYZED WITH NIMBEX. VENT SET TO AC 16/420 PEEP 16 FIO2 100% TO MAINTAIN O2 SATURATIONS> 90%. TOF 0/4, BIS MONITOR READING IN THE 40'S, SEE FLOWSHEET FOR TITRATIONS AND TOF/BIS ASSESSMENTS. MONITOR SHOWS SINUS RHYTHM WITH BBB, HR 70'S-80'S, BP STABLE. PT IS PRONED IN [place] POSITION TO ELEVATE HEAD [address], CLAMPED. PAN IN PLACE WITH GOOD URINE OUTPUT. EXTREMETIES ELEVATED ON PILLOWS FOR SUPPORT/COMFORT. FENTANYL GTT INFUSING @ 50mcg/hr.
[2020-09-28 03:56] LABS: Hematocrit 44.4 % (37.0-53.0); Hemoglobin 13.9 g/dL (13.5-17.5); Mean Corpuscular HGB 31.7 pg (26.0-34.0); Mean Corpuscular HGB Conc 31.3 g/dL (31.5-36.5); Platelet Count 173 K/mm3 (150-400); RDW Coefficient Variation 13.9 % (11.7-14.2); RDW Standard Deviation 51.8 fL (35.1-46.3); Red Blood Cell Count 4.39 M/mm3 (4.30-5.90); White Blood Cell Count 9.89 K/mm3 (4.00-11.30)
[2020-09-28 03:59] LABS: Mean Corpuscular Volume 101 fL (80-100)
[2020-09-28 04:18] LABS: Albumin, Blood 2.6 g/dL (3.4-5.0); Anion Gap 5 mmol/L (6-16); Blood Urea Nitrogen 32 mg/dL (8-24); Bun/Creatinine Ratio 32.5 (12.0-20.0); CO2, Blood 27 mmol/L (21-32); Calcium, Blood 7.8 mg/dL (8.5-10.1); Chloride, Blood 104 mmol/L (98-108); Creatinine, Blood 0.98 mg/dL (0.60-1.20); Glomerular Filtration Rate >60 (60-); Glucose, Blood 183 mg/dL (70-99); Phosphorus, Blood 5.3 mg/dL (2.5-4.9); Potassium, Blood 5.5 mmol/L (3.5-5.5); Sodium, Blood 136 mmol/L (136-145)
--- NOTE | 2020-09-28 08:03 | NUR ---
SHIFT SUMMARY PT REMAINS INTUBATED, SEDATED AND PARALYZED. PROPOFOL INCREASED TO 60 TO MAINTAIN BIS READING 40'S-50'S. NIMBEX @ 1.5 WITH TOF 1/4, FENTANYL GTT CONTINUES TO INF @ 50mcg/hr. VENT SETTINGS AC 16/420 PEEP 14 FIO2 WAS TITRATED TO 60% WHILE PRONED BUT CURRENTLY AT 100% AFTER PLACING PT SUPINE. LS CLEAR, MINIMAL SECRETIONS FROM ETT. MONITOR SHOWS SINUS RHYTHM WITH BBB, HR 50'S-60'S, BP STABLE. OG IN PLACE, CLAMPED. PAN IN PLACE WITH DECREASED OUTPUT T/O SHIFT, URINE VERY CLOUDY. SIGNIFICANT NECK STIFFNESS NOTED, ONLY MINIMAL REPOSITIONS POSSIBLE WHILE PRONED. REPORT GIVEN TO KATHLEEN MENCHACA.
--- NOTE | 2020-09-28 08:15 | NUR ---
ASSESSEMNT- PT SEDATED WITH PROPOFOL AT 60 MCG/MIN. PARALYZED WITH NIMBEX AT 1.5 DECREASED TO 1 MCG/KG/MIN, TOF NO RESPONSE. PUPILS PINPOINT, LACRILUBE APPLIED. INTUBATED, TUBE SECURE. LUNGS CLEAR, DIMINSHED THROUGHOUT. REPOSITIONED WITH TWO ASSIST, SATURATIONS DECREASED TO 80% AFTER LAYING FLAT QUICKLY TO REPOSITION, UNABLE TO RECOVER, TURN TO LEFT SIDE, POOR RECOVERY, NEED TO INCREASE PEEP TO 16 AND REPOSITIONED AGAIN TO FAR LEFT WITH IMPROVMENT OF SATURATIONS TO 90%. NO SPONTANEOUS MOVEMENT, NSR, BP STABLE. ABDOMEN LARGE, OGT CLAMPED WITH BILE DRAINAGE. UO VIA PAN. ON ENHANCED PRECAUTIONS. 2 PIV X 2 INTACT, LEFT UPPER ARM MIDLINE DI.
--- NOTE | 2020-09-28 08:45 | NUR ---
TOF NOW 4 TWITCHES.
--- NOTE | 2020-09-28 10:09 | NUR ---
BIS MONITOR 52-52. TOF 4 TWITCHES. NO MOVEMENT NOTED. ABLE TO REPOSITION WITH STABLE SATURATIONS. DR. REYES HERE-UPDATED. PLANS FOR PRONE AT NOON
[2020-09-28 10:45] LABS: PCO2 Arterial 67.7 mmHg (35-45); PO2 Arterial 78.4 mmHg (80-100); pH Blood Arterial 7.23 (7.35-7.45)
--- NOTE | 2020-09-28 10:48 | NUR ---
PHYSICIAN AT BEDSIDE-UPDATED. CONTINUE NIMBEX NOW AT LOW DOSE. PEEP DECREASED TO 14, FIO2 DECREASED TO 90%, SATURATIONS 92%
--- NOTE | 2020-09-28 12:45 | NUR ---
MULTIPLE STAFF AT BEDSIDE, PT TURNED TO PRONE POSITION, AIRWAY MAINTAINED/MONITORED BY RESPIRATORY THERAPISTS. OXYGEN SATURATIONS DECREASED TO 50'S, DR. NEELY NOTIFIED, HERE, ATTEMPT TO BAG WITH GRADUAL IMPROVEMENT, VENT CHANGES-INCREASED AC TO 24 AND PEEP UP TO 18. BP STABLE. UNABLE TO OBTAIN CONSISTENT SATURATION BETTER THAN 86%, CHANGED BACK TO SUPINE POSITION WITH IMPROVEMENT OF SATURATIONS TO 90% NIMBEX INCREASED TO 1 MCG/KG/MIN D/T RESISTANCE WITH BAGGING WITH IMPROVEMENT. CONTINUE TO MONITOR
--- NOTE | 2020-09-28 13:34 | NUR ---
CALLED PT'S WITH UPDATE. OK FOR HER TO VISIT TODAY. VS STABLE NOW
--- NOTE | 2020-09-28 14:45 | NUR ---
ABLE TO TOLERATE DECREASED PEEP TO 16 WITH STABLE SATURATIONS. PT'S HERE-UPDATED
--- NOTE | 2020-09-28 15:00 | NUR ---
DR NEELY HERE-PLANS TO WEAN FI02 AND PEEP IF ABLE. PT'S AT BEDSIDE. CONTINUE NIMBEX TODAY, PLANS TO D/C TOMORROW
--- NOTE | 2020-09-28 16:05 | NUR ---
Spiritual care visit conducted. Patient is on vent. Patient's spouse, Sam, is bedside. Life review of patient conducted including info on patient's career, family and spiritual journey. I normalize Sam's experience and concerns, and provide therapeutic listening and prayer. Sam responds well and shows signs of being encouraged in her jade. I will continue to remain available to patient and family.
--- NOTE | 2020-09-28 16:53 | NUR ---
SEE ASSESSMENTS. TOLERATING VENT, SEDATED, NO S/S PAIN, SINUS BRADYCARDIA 50'S. BP STABLE. AT BEDSIDE. CONTINUE TO MONITOR
--- NOTE | 2020-09-28 17:37 | NUR ---
Poor tolerance of proning. called in met with chaplian, will remain available.
--- NOTE | 2020-09-28 18:38 | NUR ---
REPOSITIONED, DESAT TO 85% BUT ABLE TO RECOVER WITHIN COUPLE MINUTES WITHOUT INTERVENTION. VENT SETTING AC 24 TV 420 PEEP 16 FIO2 80%. LUNGS REMAIN CLEAR, DIMINISHED, TIFFANY BROWN SMALL AMOUNT ETT SECRETIONS. LINES SECURE. TUBE FEED STARTED TODAY VIA OGT, ABDOMEN SOFT, NO BM. PIV X 2 INTACT, POWER GLIDE INTACT. BIS MONITOR 50'S. TOF 4 TWITCHES EYEBROWS, UNABLE TO ELICIT RESPONSE ON WRIST, BOTH WRISTS SWOLLEN. UO ADEQUATE. CONTINUE PROPOFOL AT 50 MCG/KG/MIN AND FENTANYL BEAM HOUSE INSPECTOR AT 50 MCG/HR FOR SEDATION. NO S/S DISCOMFORT. SCDS ON. HOB ELEVATED.
--- NOTE | 2020-09-28 20:05 | NUR ---
ASSUMED CARE NOTE: ASSUMED CARE OF PT AT 1900, RECEVIED REPORT FROM PERLA Bernardo RN. PT SEDATED WITH PROPOFOL AT 50MCG/KG/MIN AND PARALYZED WITH NIMBEX AT 0.5MCG/KG/MIN. PT INTUBATED WITH VENT SETTINGS AT AC20/420/16/80% WHILE PROVIDING ORAL CARE PT MOVED HEAD FROM SIDE TO SIDE, RR INCREASED TO 34, SPO2 DROPPED TO 80% PT THEN PLACED AT 100% FiO2, NIMBEX INCREASED TO 1.0MCG/KG/MIN, AND PROPOFOL INCREASED TO 60MCG/KG/MIN. AFTER 10 MINUTES TOF 3/4, RR AT 24, FiO2 AT 90% , SPO2 AT 93% PT IS IN SINUS DOMINIQUE WITH HR AT 58. BP STABLE. HELD LOPRESSOR DUE TO HR LESS THAN 60. BILAT RADIAL AND PEDAL PULSES FAINT AND THREADY. TUBE FEED RUNNING AT GOAL 15ML/HR, RESIDUAL LESS THAN 5ML. ABDOMEN DISTENDED, BT HEARD IN ALL QUADRANTS. PAN PATENT AND DRAINING TO GRAVITY. PT REPOSITIONED AT 1999 WITH NO DIFFICULTY, SPO2 MAINTAINED ABOVE 90% AND RR AT 24. WILL CONTINUE TO MONITOR PT T/O SHIFT
--- NOTE | 2020-09-28 20:37 | NUR ---
FIO2 DECREASED TO 80% FROM 90%, DUE TO SPO2 BEING AT 100% WILL CONTINUE TO TITRATE FiO2. RT SIENA NOTIFIED. RR AT 24, SPO2 98% BIS 45, TOF 2/4.
--- NOTE | 2020-09-28 21:03 | NUR ---
TITRATED FiO2 DECREASED TO 60%, SPO2 93% STAYED WITH PATIENT FOR 30 MINUTES. RT NOTIFIED. WILL CONTINUE TO MONITOR
--- NOTE | 2020-09-28 22:01 | NUR ---
REPOSITIONED PT, FiO2 INCREASED TO 95% , SPO2 AT 90%
--- NOTE | 2020-09-28 22:39 | NUR ---
PT REPOSTIONED TO RIGHT SIDE, SPO2 INCREASED TO 98% FIO2 DECREASED TO 75% , SPO2 95%
--- NOTE | 2020-09-29 02:39 | NUR ---
BIS MONITOR SENSOR CHANGED. PROPOFOL INCREASED TO 50MCG/KG/MIN, BIS READING 45. SBP INCREASED TO 190 WHEN PROPOFOL DOWN TO 40MCG/KG/MIN, IS COMING DOWN SBP NOW IN THE 160'S.
[2020-09-29 03:55] LABS: BASOPHILS ABSOLUTE AUTO 0.02 K/mm3 (0.00-0.23); BASOPHILS PERCENT AUTO 0 % (0-2); EOSINOPHILS ABSOLUTE AUTO 0.22 K/mm3 (0.00-0.68); EOSINOPHILS PERCENT AUTO 3 % (0-6); Hematocrit 41.3 % (37.0-53.0); Hemoglobin 13.4 g/dL (13.5-17.5); IMMATURE GRAN ABSOLUTE AUTO 0.24 K/mm3 (0.00-0.10); IMMATURE GRAN PERCENT AUTO 3 % (0-1); LYMPHOCYTES ABSOLUTE AUTO 0.53 K/mm3 (0.84-5.20); LYMPHOCYTES PERCENT AUTO 7 % (21-46); MONOCYTES PERCENT AUTO 3 % (4-13); Mean Corpuscular HGB 32.5 pg (26.0-34.0); Mean Corpuscular HGB Conc 32.4 g/dL (31.5-36.5); Mean Corpuscular Volume 100 fL (80-100); Mean Platelet Volume 9.9 fL (9.1-12.4); NEUTROPHILS ABSOLUTE AUTO 6.63 K/mm3 (1.96-9.15); NEUTROPHILS PERCENT AUTO 84 % (41-73); Platelet Count 152 K/mm3 (150-400); RDW Coefficient Variation 13.6 % (11.7-14.2); RDW Standard Deviation 50.6 fL (35.1-46.3); Red Blood Cell Count 4.12 M/mm3 (4.30-5.90); White Blood Cell Count 7.84 K/mm3 (4.00-11.30)
[2020-09-29 04:12] LABS: Anion Gap 5 mmol/L (6-16); Blood Urea Nitrogen 31 mg/dL (8-24); Bun/Creatinine Ratio 40.5 (12.0-20.0); CO2, Blood 28 mmol/L (21-32); Calcium, Blood 7.6 mg/dL (8.5-10.1); Chloride, Blood 104 mmol/L (98-108); Creatinine, Blood 0.77 mg/dL (0.60-1.20); Glomerular Filtration Rate >60 (60-); Glucose, Blood 154 mg/dL (70-99); Magnesium, Blood 2.7 mg/dL (1.6-2.4); Phosphorus, Blood 2.9 mg/dL (2.5-4.9); Potassium, Blood 4.9 mmol/L (3.5-5.5); Sodium, Blood 137 mmol/L (136-145)
[2020-09-29 05:07] LABS: PCO2 Arterial 57.6 mmHg (35-45); PO2 Arterial 93.6 mmHg (80-100); pH Blood Arterial 7.31 (7.35-7.45)
--- NOTE | 2020-09-29 06:46 | NUR ---
SHIFT SUMMARY: SEE PREVIOUS NOTES. PT CONTINUES TO BE SEDATED WITH PROPOFOL AT 50MCG/KG/MIN, FENTANYL 50MCG/HR, BIS MONITOR READING 39-45. PT PARALYZED WITH NIMBEX AT 1.0MCG/KG/MIN, TOF 3/4. VENT SETTINGS AC20/420/16/100%, SPO2 92% PT HAS BEEN HAVING SMALL AMOUNTS OF THICK BLOOD TINGED SECRETIONS. PT DESAURATES WITH EXCESSIVE MOVMENT. SPO2 USUALLY INCREASES WHEN PT IS IN FOWLERS OR TO RIGHT SIDE. PT DOES NOT TOLERATE LEFT SIDE. PT HAS BEEN IN SINUS RYTHYM WITH HR IN THE 60'S. TUBE FEED RUNNING AT GOAL 15ML/HR, RESIDUALS LESS THAN 5MLS T/O SHIFT. NO BM NOTED. PAN PATENT AND DRAINING TO GRAVITY, DARK TEA COLORED NOTED. BED AT LOWEST LEVEL. REPORT GIVEN TO PERLA MENCHACA.
--- NOTE | 2020-09-29 08:05 | NUR ---
ASSESSMENT- PT SEDATED WTIH PROPOFOL AT 50 MCG/KG/MIN AND FENTANYL GTT AT 50 MCG/HR. PARALYZED WITH NIMBEX AT 1 MCG/KG/MIN-OFF NOW. TOF 4/4. PROPOFOL INCREASED TO 60 MCG/MIN. SKIN PALE, DIAPHORETIC, COOL, AFEBRILE. ORALLY INTUBATED, TUBE SECURE. LUNGS CLEAR, VERY DIMINISHED THROUGHOUT. SUCTIONING BLOODY SECRETIONS. ABDOMEN LARGE, SOFT WITH BOWEL SOUNDS. OGT INTACT WITH TUBE FEEDING VITAL HIGH PROTEIN AT 15 CC/HR GOAL RATE, RESIDUAL 10 CC REPLACED. UO ADEQUATE VIA PAN. PIV LEFT AC AND RIGHT HAND INTACT, POWER GLIDE LEFT UPPER ARM INTACT. BILATERAL WRIST RESTRAINTS ON FOR SAFETY-PARALYTIC OFF. REPOSITIONED. BRUISING LEFT HEEL, FLOATED ON PILLOW
--- NOTE | 2020-09-29 08:27 | NUR ---
NEED TO REPOSITION BACK TO SUPINE-SATURATIONS DECREASED TO 84% ON LEFT SIDE. SUCTIONED FOR SMALL AMOUNT BLOODY ETT SECRETIONS.
--- NOTE | 2020-09-29 09:11 | NUR ---
DESAT AGAIN, IMPROVED AFTER SUCTIONING BLOODY SECRETIONS. DESATS WITH ANY STIMULATION
--- NOTE | 2020-09-29 09:58 | NUR ---
PROPOFOL OFF BRIEFLY FOR BOTTLE CHANGE-PT IN ACUTE DISTRESS, COUGHING, CIRCUIT CAME APART WITH COUGH, OXYGEN SATURATIONS DECREASED TO 60'S. DR. NEELY HERE-PROPOFOL INCREASED FOR SEDATION, FENTANYL IVP GIVEN, INCREASED FENTANYL GTT TO 100 MCG/HR. NIMBEX REMAINS OFF. HAD ATTEMPTED TO REPOSITION BUT NO AFFECT. ORDERS TO KEEP FLAT TODAY. BLOODY SECRETIONS, OK FOR LOVENOX PER DR. NEELY. RECOVERED SLOWLY TO 95%
--- NOTE | 2020-09-29 11:47 | NUR ---
PT WITH DECREASING SATURATIONS-NO CAUSE IDENTIFIED. DR. NEELY HERE-PROPOFOL INCREASED TO 75 MCG/KG/MIN, NIMBEX RESTARTED, FENTANYL IVP GIVEN. RR 30 BPM ON VENT. SATURATIONS CONTINUE TO DECREASE TO 39, PARALYTIC GIVEN-VECURONIUM, PT BAGGED BY THERAPIST TO 85%. NSR 70'S. BIS NOW 30'S. BREATH SOUNDS BILATERALLY. ATTEMPT TO SUCTION, MINIMAL SECRETIONS. NOTIFIED
--- NOTE | 2020-09-29 12:11 | NUR ---
SATURATIONS NOW STABLE UP TO 95% AFTER BAGGING. CHEST XRAY DONE. FAMILY UPDATED, WILL BE HERE. NIMBEX AT 1.5 MCG/KG/MIN NSR RATE 60'S. DR. NEELY HERE DURING EPISODE.
[2020-09-29 14:29] LABS: PCO2 Arterial 58.9 mmHg (35-45); PO2 Arterial 79.9 mmHg (80-100); pH Blood Arterial 7.32 (7.35-7.45)
--- NOTE | 2020-09-29 14:41 | NUR ---
SEE ABG RESULTS. AT BEDSIDE. DISCUSSED PLAN WITH AND ON PHONE WITH PT'S DAUGHTER, QUESTIONS ANSWERED. DISCUSSION REGARDING CODE STATUS. STATES DID NOT UNDERSTAND AND WOULD LIKE FULL CODE. UPDATE TO DR. NEELY.
--- NOTE | 2020-09-29 14:48 | NUR ---
DR. NEELY HAD DISCUSSION WITH PT'S REGARDING CODE STATUS. TO KEEP DNR FOR NOW- TO DISCUSS MORE WITH FAMILY. WILL NOTIFY IF ANY PROBLEMS/DESATURATION EPISODES. PO2 ADEQUATE ON ABG.
--- NOTE | 2020-09-29 16:00 | NUR ---
Spiritual care visit conducted. Patient's spouse, Sam, is bedside and tearful. She tells me about the struggles earlier in the morning to keep patient's levels up. She adds more details to what she shared with me yesterday about patient's life and passions. I listen quietly and provide prayer. Sam shows signs of being encouraged in her jade. I will continue to assist Sam in dealing with the spiritual/emotional aspect of this difficult medical situation.
--- NOTE | 2020-09-29 16:31 | NUR ---
VS STABLE NOW, TOLERATING VENT. TOF 0/4-DECREASED NIMBEX TO 0.5 BIS 39-42. LACRILUBE TO EYES, PERRL. REPOSITIONED SLIGHTLY TO SIDE JUST TO RELIEVE PRESSURE. PARTIAL BATH DONE. TOLERATING TUBE FEEDS. BOWEL SOUNDS RARE. NO BM. LUNGS REMAIN DECREASED THROUGOUT, SCANT BLOODY SECRETIONS. DIURESED AFTER LASIX
--- NOTE | 2020-09-29 18:30 | NUR ---
CHANGED TO FULL CODE STATUS PER 'S REQUEST. TOLERATING VENT, NO FURTHER DESATURATION EPISODES SINCE NOON TODAY. FIO2 AT 85% NSR, BP STABLE. PROPOFOL AT 60 MCG/KG/MIN, FENTANYL ONLINE BANKING SPECIALIST AT CONTINUOUS RATE 100 MCG/HR. BIS MONITOR INTACT. LINES INTACT. UO 1400 CC TODAY-HAD LASIX. NIMBEX AT 0.5 TOF 4/4. CONTINUE TO MONITOR
--- NOTE | 2020-09-29 21:00 | NUR ---
ASSUMPTION OF CARE PT INTUBATED, SEDATED WITH PROPOFOL AND FENTANYL GTT'S AND PARALYZED WITH NIMBEX. VENT SET TO AC 30/320 PEEP 16 FIO2 85%, BIS MONITOR READING 40-49, TOF 4/4, SEE FLOWSHEET FOR INFUSION RATES AND TITRATIONS. NO SECRETIONS FROM ETT AT THIS TIME. MONITOR SHOWS SINUS RHYTHM WITH HR 60'S-70'S, BP STABLE. OG IN PLACE WITH TF @ 15ml/hr, LOW RESIDUALS. PAN IN PLACE DRAINING CLEAR GREEN URINE. MINIMIZING TURNS PER ORDER R/T PT SIGNIFCANT 02 DESATURATIONS DURING PREVIOUS REPOSITIONINGS.
[2020-09-30 03:49] LABS: PCO2 Arterial 59.5 mmHg (35-45); pH Blood Arterial 7.34 (7.35-7.45)
--- NOTE | 2020-09-30 03:56 | NUR ---
HYPERTENSION SBP 218, INCREASED PROPOFOL BACK TO 60 WITH SUBSEQUENT SBP 190'S. CALL PLACED TO DR NEELY REGARDING HYPERTENSION, UPDATED ON L ARM SWELLING. NEW ORDER FOR AMLODIPINE 10mg PT x1.
[2020-09-30 04:00] LABS: BASOPHILS ABSOLUTE AUTO 0.01 K/mm3 (0.00-0.23); BASOPHILS PERCENT AUTO 0 % (0-2); EOSINOPHILS ABSOLUTE AUTO 0.28 K/mm3 (0.00-0.68); EOSINOPHILS PERCENT AUTO 3 % (0-6); Hematocrit 41.8 % (37.0-53.0); Hemoglobin 13.3 g/dL (13.5-17.5); IMMATURE GRAN ABSOLUTE AUTO 0.17 K/mm3 (0.00-0.10); IMMATURE GRAN PERCENT AUTO 2 % (0-1); LYMPHOCYTES ABSOLUTE AUTO 0.57 K/mm3 (0.84-5.20); LYMPHOCYTES PERCENT AUTO 6 % (21-46); MONOCYTES ABSOLUTE AUTO 0.22 K/mm3 (0.16-1.47); MONOCYTES PERCENT AUTO 2 % (4-13); Mean Corpuscular HGB 31.7 pg (26.0-34.0); Mean Corpuscular HGB Conc 31.8 g/dL (31.5-36.5); Mean Corpuscular Volume 100 fL (80-100); NEUTROPHILS ABSOLUTE AUTO 8.85 K/mm3 (1.96-9.15); NEUTROPHILS PERCENT AUTO 88 % (41-73); Platelet Count 155 K/mm3 (150-400); RDW Coefficient Variation 13.4 % (11.7-14.2); RDW Standard Deviation 49.9 fL (35.1-46.3)
[2020-09-30 04:17] LABS: Anion Gap 5 mmol/L (6-16); Blood Urea Nitrogen 35 mg/dL (8-24); CO2, Blood 30 mmol/L (21-32); Calcium, Blood 7.7 mg/dL (8.5-10.1); Chloride, Blood 103 mmol/L (98-108); Glomerular Filtration Rate >60 (60-); Glucose, Blood 176 mg/dL (70-99); Magnesium, Blood 2.7 mg/dL (1.6-2.4); Phosphorus, Blood 2.8 mg/dL (2.5-4.9); Potassium, Blood 4.6 mmol/L (3.5-5.5); Sodium, Blood 138 mmol/L (136-145)
--- NOTE | 2020-09-30 06:30 | NUR ---
SHIFT SUMMARY PT REMAINS INTUBATED, SEDATED AND PARALYZED SEE FLOWSHEET FOR TITRATIONS. VENT SET TO AC 30/360 PEEP 16 FIO2 TITRATED 70%. MONITOR SHOWS SINUS RHYTHM WITH HR 60'S-70'S, SEE PREVIOUS NOTE FOR HYPERTENSION, PT REMAINS HYPERTENSIVE WITH SBP 170'S. PT TOLERATING SMALL TURNS. BOWEL TONES REMAIN VERY HYPOACTIVE, HOWEVER PT HAS LOW RESIDUALS. PAN CONTINUES TO DRAIN GREEN URINE.
--- NOTE | 2020-09-30 07:30 | NUR ---
RECEIVED PT FROM IRWIN, IT PROGRAM ENGAGEMENT DIRECTOR CHANGED, PUMP CLEARED. PT ON VENTILATOR, RATE 30, TIDAL VOLUME 320, FI02 @100%, PEEP 15. NIMBEX INFUSING AT 1.5 MCG, PROPOFOL @60 MCG/HR, FENTANYL @100 MCG/HR CONTINUOUS IT PROGRAM ENGAGEMENT DIRECTOR INFUSION. RIGHT ARM WITH IV SITE X 2, POWER GLIDE IN LEFT UPPER ARM, LEFT ARM SWOLLEN AND WARM TO THE TOUCH, POWER GLIDE NOT FLUSHED AT THIS TIME. ABDOMEN, FIRM, HYPOACTIVE BOWEL TONES, TUBE FEEDING WITH <10ML RESIDUAL, MEDS PER TUBE. PAN WITH MINIMAL AMT OUTPUT AT THIS TIME. FEET WITH GOOD PULSES,WARM TO THE TOUCH. BLOOD PRESSURE CONTINUES TO BE ELEVATED, CALL TO , ORDERS RECEIVED.
--- NOTE | 2020-09-30 12:39 | NUR ---
NAVAL AIRCREWMAN HELICOPTER HERE FOR STUDY OF LUE, R/T DVT. PT'S HERE. NO CHANGES IN PT FROM THIS AM.
--- NOTE | 2020-09-30 19:07 | NUR ---
DAHLIA HAS BEEN HAVING TROUBLE WITH HIS BLOOD PRESSURE ALL SHIFT. HE HAS BEEN TREATED 4 TIMES FOR SBP >180 WITH LABETOLOL. HE HAS BEEN BROUGHT DOWN TO 26 ON THE VENTILATOR BY AND TOLERATED WELL. HE WAS ROLLED FOR LINEN CHANGE AND BACK ASSESSMENT AND TOLERATED WELL, SATS CAME BACK UP IN <5 MINUTES. HE HAS BEEN ON PROPOFOL 60MCG/KG/MIN, NIMBEX 1.5MCG/KG/MIN, AND KVO @10ML. HIS FENTANYL HARD ROCK DRILL OPERATOR CONTINUOUS INFUSION AT 100MCG/HR CONTINUES. THERE IS AN EFFORT BEING DONE FOR PICC LINE AT THIS TIME, WITH HIM IN A FLAT POSITION, HE IS HANGING IN THE LOW 80'S. BIS HAS REMAINED <50 THROUGHOUT THE SHIFT, TOF HAS BEEN 4/4. WAS WITH HIM FOR THE AFTERNOON.
--- NOTE | 2020-09-30 22:01 | NUR ---
ASSUMED PT CARE FROM BERNARDA GUAJARDO PT INTUBATED, SEDATED, AND PARALYZED. PROPOFOL AT 60MCG/KG/MIN, NIMBEX AT 1.5 MCG/KG/MIN, FENTANYL AT 100MCG/HR. TOF: 2/4. BIS 30-40. VENT SETTINGS: AC 26, VT 360, PEEP 16, FIO2 100%; BIOX 85-87%. BIOX WAS LOW 80'S DURING ATTEMPTED PICC LINE INSERTION; HOWEVER, ONCE ATTEMPT WAS DONE, PT SAT BACK UP IN HIGH FOWLERS WITH A SLOW RECOVERY WITH OXYGEN SATURATIONS WITH GOOD PLETH. CALL OUT TO DR. NEELY WHO STATED TO INCREASE PEEP TO 18 IF NEEDED IN ORDER TO GET BIOX 90% OR GREATER. IF UNSUCCESSFUL SHE GAVE ORDERS TO HAVE RT BAG THE PT IN ORDER TO RECOVER OXYGEN SATURATIONS. WHILE RT WAS IN ROOM THEY ATTEMPTED MOVING OXYGEN PROBE FROM EARLOBE TO NOSTRIL WITH OXYGEN SATURATION INCREASING TO 91%; THEREFORE, NO NEED TO INCREASE PEEP AT THIS TIME. VITAL HIGH PROTEIN INFUSING AT GOAL OF 15MLS/HR. RESIDUAL 280ML; THEREFORE, PLACED ON HOLD AND WILL REASSESS. PAN CATHETER IS PATENT AND DRAINING CLEAR, YELLOW/GREEN URINE TO GRAVITY. NSR NOTED WITH HR 70'S; SLIGHT ST ELEVATION NOTED; HOWEVER, THIS DOES NOT APPEAR NEW COMPARED TO OTHER RHYTHM STRIPS IN CHART. WILL CONTINUE TO MONITOR.
[2020-10-01 03:47] LABS: BASOPHILS ABSOLUTE AUTO 0.04 K/mm3 (0.00-0.23); BASOPHILS PERCENT AUTO 0 % (0-2); EOSINOPHILS ABSOLUTE AUTO 0.12 K/mm3 (0.00-0.68); EOSINOPHILS PERCENT AUTO 1 % (0-6); Hematocrit 42.7 % (37.0-53.0); Hemoglobin 13.9 g/dL (13.5-17.5); IMMATURE GRAN PERCENT AUTO 2 % (0-1); LYMPHOCYTES ABSOLUTE AUTO 0.62 K/mm3 (0.84-5.20); LYMPHOCYTES PERCENT AUTO 5 % (21-46); MONOCYTES ABSOLUTE AUTO 0.49 K/mm3 (0.16-1.47); MONOCYTES PERCENT AUTO 4 % (4-13); Mean Corpuscular HGB 33.1 pg (26.0-34.0); Mean Corpuscular HGB Conc 32.6 g/dL (31.5-36.5); Mean Corpuscular Volume 102 fL (80-100); Mean Platelet Volume 9.8 fL (9.1-12.4); NEUTROPHILS ABSOLUTE AUTO 11.39 K/mm3 (1.96-9.15); NEUTROPHILS PERCENT AUTO 88 % (41-73); Platelet Count 157 K/mm3 (150-400); RDW Coefficient Variation 13.6 % (11.7-14.2); RDW Standard Deviation 51.3 fL (35.1-46.3); White Blood Cell Count 12.96 K/mm3 (4.00-11.30)
[2020-10-01 04:07] LABS: Anion Gap 2 mmol/L (6-16); Blood Urea Nitrogen 46 mg/dL (8-24); Bun/Creatinine Ratio 49.8 (12.0-20.0); CO2, Blood 31 mmol/L (21-32); Calcium, Blood 7.4 mg/dL (8.5-10.1); Chloride, Blood 103 mmol/L (98-108); Creatinine, Blood 0.92 mg/dL (0.60-1.20); Glomerular Filtration Rate >60 (60-); Glucose, Blood 164 mg/dL (70-99); Magnesium, Blood 3.2 mg/dL (1.6-2.4); Phosphorus, Blood 3.6 mg/dL (2.5-4.9); Potassium, Blood 5.2 mmol/L (3.5-5.5); Sodium, Blood 136 mmol/L (136-145)
[2020-10-01 05:16] LABS: PO2 Arterial 61.3 mmHg (80-100); pH Blood Arterial 7.27 (7.35-7.45)
[2020-10-01 05:17] LABS: PCO2 Arterial 71 mmHg (35-45)
--- NOTE | 2020-10-01 06:25 | NUR ---
END OF SHIFT SUMMARY PT REMAINS INTUBATED, SEDATED, AND PARALYZED. VENT SETTINGS AC 26, VT 360, PEEP 16, FIO2 100%; HOWEVER, NEW ORDERS TO INCREASE AC TO 30 D/T CRITICAL ABG VALUES. PROPOFOL AT 55MCG/KG/MIN, NIMBEX AT 1.5MCG/KG/MIN, FENTANYL AT 100MCG/HR. TOF 4/4. BIS 40-55. PT REMAINS UNRESPONSIVE. STRICT ORDERS TO NOT REPOSITION D/T OXYGENATION REASONS; THEREFORE, PT PROVIDED WITH SLIGHT HIP SHIFTS, A PARTIAL BATH, ROM, AND ORAL CARE FOR ADL'S. TWO PERIPHERAL IV'S REMAIN PATENT TO RIGHT ARM; 20G TO RIGHT UPPER ARM, 18G TO RIGHT HAND. VITAL HIGH PROTEIN INFUSING AT GOAL OF 15MLS/HR; SEE I/O FOR RESIDUALS. BOWEL TONES REMAIN VERY HYPOACTIVE. LUNG SOUNDS DIMINISHED T/O ALL LOBES. NSR WITH BBB AND SLIGHT ST ELEVATION THAT IS UNCHANGED FROM PRIOR RHYTHM STRIPS. PAN CATHETER REMAINS GREEN/YELLOW AND DRAINING TO GRAVITY. WILL CONTINUE TO MONITOR UNTIL REPORT IS HANDED OFF TO ONCOMING RN.
--- NOTE | 2020-10-01 08:00 | NUR ---
PT RECEIVED FROM BERNARDA POLANCO. PT ON THE VENTILATOR AC 30/TV 360/ FIO2 100%/PEEP 16. BIS IN 40'S,SPUTUM RETURNS THIN RED TINGED. ABDOMEN FIRM, ROUND, RESIDUAL OF 200ML'S, REINSTILLED. TUBE FEEDING VITAL HIGH PROTEIN @ 15ML/HR. PAN DRAINING YELLOW/GREEN TINGED RETURN, GOOD OUTPUT. SCD'S IN PLACE, PULSES GOOD. REPOSITIONED SLIGHTLY, FENTANYL CONTINUOUS @ 100,PROPOFOL @55, NIMBEX @1.5.
--- NOTE | 2020-10-01 15:15 | NUR ---
Spiritual care visit conducted. Patient's spouse Sam is sitting by patient's bed and weeping. She tells me that the doctors said he is not going to make and that there is not much else that can be done. She talks about many of patient's good characteristics and about how she has not told their kids yet about his current state. She talks about all the plans they had together and how she is having a hard time grasping the reality because it doesn't fit with the future they had in mind with each other. I provide a calming presence, therapeutic listening and prayer. Sam continues to sit silently.
--- NOTE | 2020-10-01 17:22 | NUR ---
SPOKE AT LENGTH WITH THE TODAY ABOUT THE CONDITION OF DAHLIA. SHE IS NOT READY TO GIVE UP. PALLIATIVE CARE CAME AND SPOKE WITH SUSHILA WELL. SOME FAMILY WAS OUTSIDE LOOKING IN AND GOPI WENT TO SPEAK WITH THEM CONCERNING DAHLIA. THEY WERE UNAWARE THE EXTENT OF HIS ILLNESS. THEY WERE GOING TO HAVE A FAMILY MEETING WITH PALLIATIVE CARE TO DISCUSS. SUSHILA BEING COVID+ WELL IS NOT ATTENDING SAID MEETING. DAHLIA CONTINUES TO STRUGGLE WITH KEEPING HIS SATS >90%, HE IS ON 100% FIO2 AND HIS PEEP WAS INCREASED TO 18 THIS AFTERNOON. HE CONTINUES TO MAKE GOOD URINE, HAS HYPOACTIVE BOWEL SOUNDS WITH LARGE RESIDUALS, NO BOWEL MOVEMENT TODAY. HE HAS SCD'S IN PLACE, GOOD PULSES, TOF 3/4, LEFT ARM REMAINS ELEVATED ON PILLOWS TO HELP WITH SWELLING. MINIMAL POSITION CHANGES.
--- NOTE | 2020-10-01 17:48 | NUR ---
Case Conference Note Met with family in ICU waiting room. Engaged in therapeutic discussion regarding the importance of developing multiple plans in the event that Pt continues to decline. Discussed Pt's wishes for CPR. Listened to family's concerns and answered questions. After several minutes of conversation including phone calls to family that was not physically present during conversation including Pt's spouse, family has decided to change Pt's code status to DNR. Family reports Pt would not want CPR. Continued therapeutic listening. Pt son states "if his heart stops this is god way of taking him". Son expresses concerns regarding not willing to make any decisions about withdrawel of care. He states "the longer he is on the ventilator the better chance of his lungs healing", "even if we have to place a trach". Provided gentle education regarding the risk of permanent hypoxic injury with his continued low O2 saturations. Continued therapeutic listeneing and offered emotional support as family members are tearful throughout visit. Family expressess appreciation of visit. Provided Palliative Care contact information and instructed to call with any questions or concerns. Discussed case with Bedside BERNARDA Louise and relayed family wishes for DNR status. [place] will obtain order from . Palliative Care will remain available.
--- NOTE | 2020-10-01 20:09 | NUR ---
ASSUMED CARE OF PT AT 1900. REPORT RECEIVED AT BEDSIDE. PT'S GEOPHYSICS SCIENTIST CARTRIDGE CHANGED AND CLEARED WITH OFFGOING RN. PT'S PRESENT AT BEDSIDE. PARTICIPATES IN BEDSIDE REPORT. SHE STATES THAT SHE WAS GOING HOME FOR THE NIGHT. REASSURANCE GIVEN THAT IF ANYTHING WAS TO CHANGE THAT SHE WOULD BE CALLED. NOTED: PT'S FIO2 WAS 100 PERCENT WITH SATURATIONS 99-100 PERCENT. DID DECREASE FIO2 TO 95 PERCENT. SPOKE WITH RESPIRATORY THERAPY ABOUT CHANGE IN FIO2. BIS MONITORING REVEALS 30-32. TRAIN OF 4 12/13. DECREASED PROPOFOL TO 50 MCG'S. GOAL WITH BIS 40-60. WILL ONLY MAKE GRADUAL CHANGES SECONDARY TO HOW FRAGILE THIS PATIENT HAS BEEN. WILL REVIEW CHART AND PLAN OF CARE FOR THIS PT.
--- NOTE | 2020-10-01 21:44 | NUR ---
HAVE BEEN ABLE TO TURN PT TO HIS LEFT SIDE WITH GRADUAL MOVES USING CEILING LIFT. PT WAS ABLE TO MAINTAIN SATURATIONS > 90 PERCENT. CONTINUES WITH AC 30, Tv 360, FIO2 95%, AND PEEP 18. NIMBEX CONTINUES AT 1.5 MCG/KG/MIN AND PROPOFOL AT 45 MCG/KG/MIN. MAINTAINS BIS 39-45. WILL CONTINUE TO MONITOR.
--- NOTE | 2020-10-02 00:31 | NUR ---
RESIDUAL 270 ML AND THIS REINFUSED. PT'S TF CONTINUES AT GOAL OF 15ML/HOUR. HAS BEEN ABLE TO TOLERATE TURNS NOW BACK TO HIS RIGHT USING CEILING LIFT AND GOING SLOW. PT MAINTAINS BIS 38-43 WITH PROPOFOL AT 40 MCG'S/KG/MIN AND NIMBEX AT 1.5 MCG'S/KG/MIN. WILL CONTINUE TO MONTIOR.
--- NOTE | 2020-10-02 02:39 | NUR ---
BEDBATH COMPLETED WHEREAS PT LOWEST SATURATION WAS 89% UNTIL LAST TURN OF REPOSITIONING WHEREAS HE DESATURATED TO 73 PERCENT QUICKLY. ATTEMPT TO SUCTION PER ETT RETURNS NO SECRETIONS. PT HAS SLOWLY BEGUN TO INCREASE SATURATIONS. CURRENTLY 87 PERCENT. WILL CONTINUE TO MONITOR. MAINTAINS BIS OF 40, WITH PROPOFOL AT 40 MCG'S. SMALL ADJUSTMENT OF PT IN BED HE WOULD DESATURATE AGAIN TO 81 PERCENT. WILL CONTINUE TO CLOSELY MONITOR.
--- NOTE | 2020-10-02 03:35 | NUR ---
PT CONTINUES SLOW RECOVERY WITH OXYGEN SATURATION. RESPIRATORY THERAPY TO ROOM. NO SECRETIONS RETURNED WITH SUCTIONING. WILL MONITOR.
--- NOTE | 2020-10-02 04:48 | NUR ---
CALL MADE TO DR NEELY CONCERNING PT SLOW OXYGEN RECOVERY. NO NEW VENT CHANGES ORDERED. WILL GET ABG.
[2020-10-02 05:06] LABS: PO2 Arterial 52.1 mmHg (80-100)
[2020-10-02 05:08] LABS: PCO2 Arterial 70 mmHg (35-45)
--- NOTE | 2020-10-02 07:18 | NUR ---
PT ADMITTED TO ROOM ICU 14 UNDER PCU STATUS. PT ABLE TO TRANSFER HIMSELF FROM RNEY TO BED WITH PIVOT TRANSFER. PT HAS SOME EXERTIONAL DYSPNEA. GOOD HISTORIAN. NO COMPLAINTS OF PAIN. OXYGEN ON AT 5 L/M PER NASAL CANNULA. PT MAINTAINS > 90 PERCENT SATURATION. REPORT GIVEN TO BERNARDA LINARES
--- NOTE | 2020-10-02 07:55 | NUR ---
PT REMAINS INTUBATED, PARALYZED, AND SEDATED. TO4 4/4 WITH NIMBEX @ 1.5 MCG/KG//MIN. BIS 40'S WITH PROPOFOL @ 55 MCG/KG/MIN. ECG SHOWS SR WITH 1 DEGREE AV AND BBB. SBP TRENDING 170-180'S- ROUTINE AM ANTIHYPERTENSIVES GIVEN. EDEMA NOTED TO SCLERA AND EXTREMITIES-EXTREMITIES ELEVATED ON PILLOWS. LUNGS DIMINISHED IN THE BASES. PT VERY DIAPHORETIC AND PALE. SATS 80-84% ON VENT: AC 30, TV 360, PEEP 18, AND FIO2 100% ATTEMPTED TO BOOST PT IN BED AND SATS BRIEFLY TO 70'S. TOLERATING OGTF @ GOAL 15 CC/HR. RESIDUAL OF 180 CC REFED. PAN WITH SMALL AMOUNT OF CLEAR, YELLOW URINE TO UROMETER-ROUTINE AM LASIX GIVEN. MEPILEX DRESSING TO COCCYX-C.D.I-IT WAS PLACED PREVENTITIVE MEASURE PT IS NOT TOLERATING TURNING AND POSITION CHANGES.
--- NOTE | 2020-10-02 09:11 | NUR ---
PT PLACED IN REVERSE [place] POSITION BY RT. JOHNSON SATS 89% PEAK PRESSURES IN THE LOW 40'S.
--- NOTE | 2020-10-02 10:00 | NUR ---
PT BOOSTED UP IN BED UTLILIZING CEILING LIFT, THEN BED PLACED IN CHAIR POSITION. SATS BRIEFLY DOWN TO 70'S AND QUICKLY RETURNED TO 89-90%.
--- NOTE | 2020-10-02 13:25 | NUR ---
BERNARDA MIRZA AT BEDSIDE TO PLACE PICC LINE. SATS DOWN TO 60'S. DR. EATON AWARE. ORDER GIVEN TO INCREASE PEEP TO 20. HOWEVER, SATS REMAIN IN THE 60'S.
--- NOTE | 2020-10-02 15:51 | NUR ---
UNABLE TO SUCCESSFULLY PLACE ADDITIONAL PIV OR PICC LINE. DR. EATON TO PLACE CENTRAL LINE AND POSSIBLY A-LINE LATER TODAY. SATS>90% WITH PEEP 20.
[2020-10-02 17:39] LABS: PO2 Arterial 57.9 mmHg (80-100); pH Blood Arterial 7.28 (7.35-7.45)
--- NOTE | 2020-10-02 18:00 | NUR ---
PT REMAINS INTUBATED, SEDATED, AND PARALYZED. TO4 REMAINS 4/4 AND BIS TRENDING IN THE 40-60'S.LEFT SUBCLAVIAN QUAD LUMEN CENTRAL LINE PLACED BY DR. EATON AND PLACEMENT CONFIRMED BY CXR. RIGHT RADIAL ARTERIAL LINE PLACED WITH SAFE SET. ABG DRAWN STAT AND RESULTS TO DR. EATON. NO VENT CHANGES AT THIS TIME. PT MAINTAINING SATS>90% ON AC 30, TV 360, PEEP 20 , FIO2 100%. REPEAT ABG IN 8 HOURS. PT SPOUSE SUSHILA CAME IN TODAY AND VISITED FROM [phone]. PT SPOUSE UPDATED BY BY THIS RN AND ALSO, SPOKE WITH DR. EATON AT LENGTH.
--- NOTE | 2020-10-02 18:14 | NUR ---
Theraputic supportive time with patients extended family.
--- NOTE | 2020-10-02 20:00 | NUR ---
ASSUMED CARE OF PT AT 1900. REPORT RECEIVED. PT PRESENTS IN BED BED. VENTED - AC 30, Tv360, FIO2 100%, PEEP 20. PT MAINTAINING SATURATIONS > 90%. PT CONTINUES ON NIMBEX AT 1.5 MCG'S/KG/MIN. PROPOFOL AT 55 MCG'S/KG/MIN. PT MAINTAINS BIS 36-41. ART LINE PATENT AND ZEROED. BLOOD PRESSURES NOTED TO BE HYPERTENSIVE. PT TO RECEIVE SCHEDULED BLOOD PRESSURE MEDICATIONS. WILL ASSESS IF PRN ANTI-HYPERTENSIVES ARE REQUIRED. SPOKE WITH DR EATON CONCERNING BLOOD PRESSURES AT [facility]. ORDER RECEIVED FOR HYDRALAZINE. WILL REVIEW CHART AND PLAN OF CARE FOR THIS PT.
--- NOTE | 2020-10-03 | NUR ---
PT REPOSITIONING DEFERRED THIS NIGHT. NO BM'S OF YET. BOWEL TONES HAVE IMPROVED. LUNGS REMAIN DIMINISHED IN BASES. NO ADVANTAGES LUNG SOUNDS. PT'S FAMILY CALLS AND UPDATE GIVEN.
[2020-10-03 02:52] LABS: PO2 Arterial 81.7 mmHg (80-100)
[2020-10-03 02:53] LABS: PCO2 Arterial 73.2 mmHg (35-45); pH Blood Arterial 7.28 (7.35-7.45)
[2020-10-03 06:19] LABS: BASOPHILS ABSOLUTE AUTO 0.05 K/mm3 (0.00-0.23); BASOPHILS PERCENT AUTO 0 % (0-2); EOSINOPHILS ABSOLUTE AUTO 0.01 K/mm3 (0.00-0.68); EOSINOPHILS PERCENT AUTO 0 % (0-6); Hematocrit 41.2 % (37.0-53.0); Hemoglobin 13.3 g/dL (13.5-17.5); IMMATURE GRAN ABSOLUTE AUTO 0.77 K/mm3 (0.00-0.10); IMMATURE GRAN PERCENT AUTO 4 % (0-1); LYMPHOCYTES ABSOLUTE AUTO 0.69 K/mm3 (0.84-5.20); LYMPHOCYTES PERCENT AUTO 4 % (21-46); MONOCYTES ABSOLUTE AUTO 1.01 K/mm3 (0.16-1.47); MONOCYTES PERCENT AUTO 5 % (4-13); Mean Corpuscular HGB 33.1 pg (26.0-34.0); Mean Corpuscular HGB Conc 32.3 g/dL (31.5-36.5); Mean Corpuscular Volume 103 fL (80-100); Mean Platelet Volume 10.9 fL (9.1-12.4); NEUTROPHILS ABSOLUTE AUTO 16.07 K/mm3 (1.96-9.15); NEUTROPHILS PERCENT AUTO 86 % (41-73); Platelet Count 201 K/mm3 (150-400); RDW Coefficient Variation 14.5 % (11.7-14.2); RDW Standard Deviation 55.4 fL (35.1-46.3); Red Blood Cell Count 4.02 M/mm3 (4.30-5.90)
--- NOTE | 2020-10-03 06:30 | NUR ---
PT HAS BEEN MEDICATED WITH HYDRALAZINE, AND LABATELOL FOR ELEVATED BLOOD PRESSURES. LABATELOL NOTED TO BE MORE AFFECTIVE WITH IMPROVING BLOOD PRESSURES. PT CONTINUES TO MAINTAIN OXYGEN SATURATIONS > 90 PERCENT WITHOUT ANY MOVEMENTS IN BED. NIMBEX CONTINUES UNCHANGED. TRAIN OF 4 4/4 PROPOFOL AT 55 MCG'S KG MIN. HAVE NOT REQUIRED SUCTIONING. NO SECRETIONS NOTED. WILL CONTINUE TO MONITOR PT, AND WILL REPORT OFF TO ONCOMING RN.
[2020-10-03 06:39] LABS: Albumin, Blood 1.8 g/dL (3.4-5.0); Anion Gap 5 mmol/L (6-16); Blood Urea Nitrogen 85 mg/dL (8-24); Bun/Creatinine Ratio 73.9 (12.0-20.0); CO2, Blood 32 mmol/L (21-32); Calcium, Blood 7.9 mg/dL (8.5-10.1); Chloride, Blood 101 mmol/L (98-108); Creatinine, Blood 1.15 mg/dL (0.60-1.20); Glomerular Filtration Rate >60 (60-); Glucose, Blood 260 mg/dL (70-99); Potassium, Blood 5.8 mmol/L (3.5-5.5); Sodium, Blood 138 mmol/L (136-145)
--- NOTE | 2020-10-03 08:00 | NUR ---
Received report from Jere MENCHACA. patient is intubated, sedated, and paralyzed. he is intubated with 8.0 ET and is 24 cm at lips with vent setting are AC 30, TV 360, FiO2 100%, PEEP 20 and sats 97%. Biz is at 46 and working intermitently he is TOF 4/4. He has art line to RLE and systolics 170's. He has quad lumen CL to upper left chest and is infusing Propofol 55 mcg/kg/min, Nimbex 1.5 mcg/kg/min, NS TKO, and continuous CHEF PASSENGER VESSEL fentanyl 100 mcg/hr. He has OG in place infusing VHP at 15ml/hr and 60 ml water Q$ and minimal residuals. He has 18 ga RW and 20 ga LFA both dressings intact and sites WNL's, flushed and ends changed. He has bilateral SCD's to LE's. Repositioned with RT and Oral and cath care done.
--- NOTE | 2020-10-03 09:30 | NUR ---
Dr Nicole in room with patient and doing assessment. Changed Tube feeding set up and new bottles, Changed over to dual Propofol botles and changed lines. Dr nicole dropped FiO2 to 75% and he remains sat 92%, Rt came in per Dr Nicole and changed TV to 400 and sats remain 92%. Repositioned to right side and he is tolerating repositioning well. No other changes. talked with and she is on her way in.
--- NOTE | 2020-10-03 11:30 | NUR ---
Went in room and Rt and I repositioned and no vent setting changes or gtt changes. Sats remaisn 92%. arrived and is going into room after she puts on gear for isolatiom. No other changes with patient. Dr wood stated no Proning patient today see nurse notify.
[2020-10-03 11:36] LABS: PCO2 Arterial 63.7 mmHg (35-45); PO2 Arterial 63.2 mmHg (80-100); pH Blood Arterial 7.34 (7.35-7.45)
--- NOTE | 2020-10-03 13:30 | NUR ---
remains at bedside. BIZ has not been working, changed head strip and modiule. TOF 4/. He remains sedated and paralyzed. Repositioning side to side and no proning today as he does not tolerate and Dr Nicole stated not too. he remains at 75% and sats >90.
--- NOTE | 2020-10-03 15:30 | NUR ---
Patient was layed back when did last positioning and did not tolerate well and had to increase FiO2 to 80% and now >90%. remains at bedside. Did not layback when positioned this time and he tolerated well No other changes to vent settings and or gtt's.
--- NOTE | 2020-10-03 18:29 | NUR ---
Repositioned patient and started to desat after laying flat to slide up in bed. Placed Fio2 at 100% and he came up to 95% after settled. Current settings are AC30, TV 400, FiO2 80% and PEEP 20 with sats 87-90%. propofol remains at 55 mcg/kg/min, Nimbex 1.5 mcg/kg/min, NS TKO. TF at 15 and 60ml water flushed Q4. Ortiz put out 1000ml yellow light angelito urine. No BM today. Fetanyl remains at 100 mcg/hr for total 1150 mcg this shift. SCD's remains in place. Patient converted to A-Fib rate 100's at 1717 and back to SR 1818.
[2020-10-03 19:01] LABS: PCO2 Arterial 63.7 mmHg (35-45); PO2 Arterial 57.2 mmHg (80-100); pH Blood Arterial 7.35 (7.35-7.45)
--- NOTE | 2020-10-03 20:00 | NUR ---
ASSUMED CARE OF PT AT 1915. REPORT RECEIVED. DRIPS CHECKED AND VERIFIED. FENTANYL DRIP AT 100 MCG HOUR. NIMBEX DRIP AT 1.5 MCG'S/KG/MIN, PROPOFOL 55 MCG'S/KG/MIN. TUBE FEEDING AT GOAL. TRAIN OF 4 12/13. AC 30, Tv 400, PEEP 20, FIO2 80%. PT MAINTAINS SATURATIONS 88-92 PERCENT. WILL REVIEW CHART AND PLAN OF CARE FOR THIS PT.
--- NOTE | 2020-10-03 23:00 | NUR ---
PT HAS TOLERATED Q 2 HOUR TURNS WITHOUT DROPS IN OXYGEN SATURATIONS. USE OF CEILING LIFT FOR TURNS. DONE SLOWLY. SPOKE WITH DR EATON PER TELEPHONE CONCERNING CONTINUATION OF HYPERTENSION. ORDER FOR NITRO PASTE. PENDING RESULTS.
[2020-10-04 02:58] LABS: PCO2 Arterial 64.5 mmHg (35-45); PO2 Arterial 60.4 mmHg (80-100); pH Blood Arterial 7.35 (7.35-7.45)
[2020-10-04 05:23] LABS: BASOPHILS ABSOLUTE AUTO 0.03 K/mm3 (0.00-0.23); BASOPHILS PERCENT AUTO 0 % (0-2); EOSINOPHILS PERCENT AUTO 0 % (0-6); Hematocrit 36.3 % (37.0-53.0); Hemoglobin 11.7 g/dL (13.5-17.5); IMMATURE GRAN ABSOLUTE AUTO 0.82 K/mm3 (0.00-0.10); IMMATURE GRAN PERCENT AUTO 5 % (0-1); LYMPHOCYTES ABSOLUTE AUTO 1.07 K/mm3 (0.84-5.20); LYMPHOCYTES PERCENT AUTO 6 % (21-46); MONOCYTES ABSOLUTE AUTO 1.37 K/mm3 (0.16-1.47); MONOCYTES PERCENT AUTO 8 % (4-13); Mean Corpuscular HGB 32.6 pg (26.0-34.0); Mean Corpuscular HGB Conc 32.2 g/dL (31.5-36.5); Mean Corpuscular Volume 101 fL (80-100); Mean Platelet Volume 10.4 fL (9.1-12.4); NEUTROPHILS PERCENT AUTO 81 % (41-73); NRBC ABSOLUTE 0.02 K/mm3 (0.00-0.02); NRBC Auto 0.1 /100 WBC (0.0-0.2); Platelet Count 184 K/mm3 (150-400); RDW Coefficient Variation 14.5 % (11.7-14.2); RDW Standard Deviation 54.5 fL (35.1-46.3); Red Blood Cell Count 3.59 M/mm3 (4.30-5.90); White Blood Cell Count 17.59 K/mm3 (4.00-11.30)
[2020-10-04 06:03] LABS: Albumin, Blood 1.8 g/dL (3.4-5.0); Anion Gap 6 mmol/L (6-16); Blood Urea Nitrogen 110 mg/dL (8-24); Bun/Creatinine Ratio 84.6 (12.0-20.0); CO2, Blood 31 mmol/L (21-32); Chloride, Blood 105 mmol/L (98-108); Glomerular Filtration Rate 58 (60-); Glucose, Blood 253 mg/dL (70-99); Phosphorus, Blood 3.2 mg/dL (2.5-4.9); Potassium, Blood 5.4 mmol/L (3.5-5.5); Sodium, Blood 142 mmol/L (136-145)
--- NOTE | 2020-10-04 06:30 | NUR ---
PT MEDICATED WITH LABATELOL FOR INCREASING BLOOD PRESSURES. NITRO PASTE HAS NOT HAD MUCH SUCCESS IN DECREASING BLOOD PRESSURE. PT HAS TOLERATED Q 2 HOUR TURNS IN BED WITHOUT DESATURATIONS. HAVE USED CEILING LIFT AND GRADUAL TURNS WHICH HAS BEEN VERY AFFECTIVE. HAVE NOT NEEDED TO SUCTION PT THIS SHIFT. LOW GRADE FEVER IN LOW 99.0 TO 99.6. PERSONAL FAN PLACED. WILL CONTINUE TO MONITOR PT, AND WILL REPORT OFF TO ONCOMING RN.
--- NOTE | 2020-10-04 07:30 | NUR ---
Received report from Jere MENCHACA. Patient is intubated and sedated as well as paralyzed. He has 8.0 ET and 24 cm at lips with vent settings of AC 30, TV 400, FiO2 80%, PEEP 20 and sats 88-91%. He has OG in place with VHP at 15 and 60 ml water flushes Q4. He has Quad lumen CL in YASMIN chest Dressing intact and site WNl's and is infusing Propofol at 55 mcg/kg/min, Nimbex 1.5 mcg/kg/min, NS TKO, Fentanyl 100mcg/hr. He has SCD's bilateral to LE's He has 16Fr. Ortiz draining to gravity. Repositioned and oral, cath care done while in room.
--- NOTE | 2020-10-04 09:30 | NUR ---
Repositioned patient. Changed line set for Propofol and Fentanyl. No vent or gtt changes. Extremities elevated.
[2020-10-04 09:56] LABS: PCO2 Arterial 63.7 mmHg (35-45); PO2 Arterial 58.5 mmHg (80-100); pH Blood Arterial 7.36 (7.35-7.45)
--- NOTE | 2020-10-04 11:30 | NUR ---
at bedside . No other significant changes with patient. Repositioned and oral, cathcare done. Patient tolertated meds through OG and IV.
--- NOTE | 2020-10-04 13:30 | NUR ---
No significant changes with patient and or with positioning titrating FiO2 from 80-85% while on left side. No changes in Gtt's. Still no BM today. BIZ 45 and TOF 4/4, replaced SCD's on and alternating every few hours to give legs a rest. He rtemains hypertensive 150-170's and HR 80-90s.
--- NOTE | 2020-10-04 15:30 | NUR ---
No chnage with patient, vent settings or gtt's. Tolerating TF with residuals <50. Nitro paste seems to help a little bit but labateolol 20mg works well for short periods. her at 1400 and at bedside. patient did not tolerate this turm on left side and had to increase to 100% FiO2 and will see if he settles in, sats 86-89.
--- NOTE | 2020-10-04 18:00 | NUR ---
Repositioned and pulled up in bed and he like right side better and was able to very quickly decrease FiO2 to 85% and remains there. is heading home and will be back tomorrow. propofol at 55 mcg/kg/min, Nimbex 1.5 mcg/kg/min, NS TKO, and Fentanyl 100mcg/hr. Ortiz output 1200 mlyellow/green urine. still no BM this shift.
--- NOTE | 2020-10-04 19:00 | NUR ---
ASSUMPTION OF CARE RECEIVED REPORT FROM JAVON MENCHACA. ASSUMED CARE OF PATIENT. PATIENT VENTILATED AND PARALYZED. VITALS STABLE. WILL REVIEW ORDERS AND TREAT PRESCRIBED.
--- NOTE | 2020-10-04 21:09 | NUR ---
NEURO UPDATE PATIENT TOF 4/4. BIS MONITOR 40-50S. NIMBEX AT 1.5MCG/KG/MIN. PROPOFOL AT 30MCG/KG/MIN.
--- NOTE | 2020-10-05 | NUR ---
REASSESSMENT NO ACUTE CHANGES FROM PREVIOUS ASSESSMENT. VENT SETTINGS REMAIN UNCHANGED. TF INFUSING AT 15ML/HR ORDERED. VITALS STABLE AT THIS TIME.
--- NOTE | 2020-10-05 04:00 | NUR ---
REASSESSMENT NO ACUTE CHANGES FROM PREVIOUS ASSESSMENT. BIS BETWEEN 50-60. TOF 4/4, NIMBEX AT 1.5MCG/KG/MIN. PATIENT TOLERATING SOFT TURN TO RIGHT. REMAINS HYPERTENSIVE, TREATING PRESCRIBED.
[2020-10-05 04:36] LABS: BASOPHILS ABSOLUTE AUTO 0.05 K/mm3 (0.00-0.23); BASOPHILS PERCENT AUTO 0 % (0-2); EOSINOPHILS PERCENT AUTO 0 % (0-6); Hematocrit 34.6 % (37.0-53.0); IMMATURE GRAN ABSOLUTE AUTO 1.07 K/mm3 (0.00-0.10); IMMATURE GRAN PERCENT AUTO 6 % (0-1); LYMPHOCYTES PERCENT AUTO 7 % (21-46); MONOCYTES ABSOLUTE AUTO 1.67 K/mm3 (0.16-1.47); MONOCYTES PERCENT AUTO 9 % (4-13); Mean Corpuscular HGB 32.3 pg (26.0-34.0); Mean Corpuscular HGB Conc 31.8 g/dL (31.5-36.5); Mean Corpuscular Volume 102 fL (80-100); NEUTROPHILS ABSOLUTE AUTO 15.15 K/mm3 (1.96-9.15); NEUTROPHILS PERCENT AUTO 79 % (41-73); NRBC ABSOLUTE 0.06 K/mm3 (0.00-0.02); NRBC Auto 0.3 /100 WBC (0.0-0.2); Platelet Count 190 K/mm3 (150-400); RDW Coefficient Variation 14.7 % (11.7-14.2); RDW Standard Deviation 55.7 fL (35.1-46.3); Red Blood Cell Count 3.41 M/mm3 (4.30-5.90); White Blood Cell Count 19.24 K/mm3 (4.00-11.30)
[2020-10-05 04:54] LABS: Albumin, Blood 1.8 g/dL (3.4-5.0); Anion Gap 6 mmol/L (6-16); Blood Urea Nitrogen 124 mg/dL (8-24); Bun/Creatinine Ratio 97.6 (12.0-20.0); CO2, Blood 33 mmol/L (21-32); Calcium, Blood 7.8 mg/dL (8.5-10.1); Chloride, Blood 103 mmol/L (98-108); Creatinine, Blood 1.27 mg/dL (0.60-1.20); Glomerular Filtration Rate 60 (60-); Glucose, Blood 312 mg/dL (70-99); Phosphorus, Blood 4.1 mg/dL (2.5-4.9); Potassium, Blood 5.2 mmol/L (3.5-5.5); Sodium, Blood 142 mmol/L (136-145)
--- NOTE | 2020-10-05 06:06 | NUR ---
SHIFT SUMMARY NO ACUTE CHANGES. PATIENT VENTILATED AND PARALYZED. NO CHANGES TO DRIPS PREVIOUSLY CHARTED. FIO2 REMAINS AT 90%. PATIENT DOES NOT TOLERATE TURNING, SATURATIONS DROP TO LOW 80S AND PATIENT VERY SLOW TO RECOVER. BLOOD PRESSURE ELEVATED, TREATED CHARTED. TOF 4/4, BIS REMAINS 50-60'S. TF INFUSING AT GOAL RATE OF 15ML/HR. PAN CATHETER PATENT AND DRAINING. WILL CONTINUE TO MONITOR AND REPORT TO ONCOMING RN.
--- NOTE | 2020-10-05 07:30 | NUR ---
PT RECEIVED FROM [facility], NIMBEX @1.5/PROPOFOL @55/FENTANYL @ 100, VENTILATOR SET AT 30 RATE/400 TIDAL VOLUME/20 PEEP/90% FIO2. TUBE FEEDING AT 15ML/HR WITH 30ML FLUSH Q 4HR. PT WITH EQUAL PUPILS, UNRESPONSIVE D/T SEDATION/PARALYZATION, VITAL SIGNS OK, BLOOD PRESSURE ELEVATED, MEDS DUE, HEART RATE 100'S, SATS 88-90%, CENTRAL LINE IN PLACE, ART LINE IN RIGHT WRIST, SCD'S OFF, UNWRAPPED AND SKIN CARE DONE, ORAL CARE DONE, LIFTED PATIENT IN THE BED, SAT HIM UPRIGHT, RESIDUAL <10MLS, HYPOACTIVE BOWEL SOUNDS, STILL NO BOWEL MOVEMENT. LEFT ARM REMAINS SWOLLEN/TIGHT, RIGHT UPPER ARM WITH BRUISING/SLIGHT SWELLING. TOF 4/4 @ 6. BIS AROUND 60, WILL TITRATE PROPOFOL TO LOWER BIS, ASSESS BLOOD PRESSURE.
--- NOTE | 2020-10-05 10:30 | NUR ---
PROPOFOL AT 65MCG/KG/MIN, BLOOD PRESSURE IS STABLE, HEART RATE IS STAYING BELOW 100 AND BIS IS CLOSER TO 50. PT LOOKS COMFORTABLE, EXTREMITIES ELEVATED, BED IN OPTI-REST TO HELP FACILITATE THE MOBILITY R/T PT'S INABILITY TO TURN. FIO2 REMAINS AT 90%, SATS >86%. UPDATED ON PATIENT'S CURRENT STATUS.
--- NOTE | 2020-10-05 18:28 | NUR ---
DAHLIA HAS HAD A GOOD DAY, HE CONTINUES ON THE VENTILATOR SETTINGS RATE:30, TIDAL VOLUME:400, PEEP 20: FIO2:100%. HE HAS MAINTAINED HIS SATURATIONS BETWEEN 86-91% FOR THE MAJORITY OF THE DAY. HE SEEMS MORE CALM WHEN HIS SUSHILA IS HERE. HE CONTINUES WITH 4/4 TOF, SET AT 6. NIMBEX @1.5, PROPOFOL @ 65, FENTANYL @ 100 MCG CONTINUOUS. HIS CENTRAL LINE IN THE LEFT SUBCLAVIAN IS INTACT AND FLOWS WELL, ART LINE IN RIGHT WRIST IS WITH GOOD READINGS, GOOD WAVEFORMS. OG TUBE CONTINUES WITH VITAL HI PROTEIN @ 15ML/HR WITH 60ML FLUSHES OF H20 Q4. ABDOMEN STILL DISTENDED AND FIRM. RESIDUALS ARE <10ML, PAN WITH GOOD URINE OUTPUT. RECTAL SUPPOSITORY JUST PLACED FOR BOWEL REGIME. SCD'S CONTINUE, REMOVED AT THE BEGINNING OF THE SHIFT AND LEGS WASHED AND MASSAGED. CHEM BG PERFORMED AND COVERED WITH 12 UNITS OF HUMALOG. TEACHING/EXPLANATIONS OF THE MEDICATIONS AND TREATMENTS TO THE , RATIONALE GIVEN. QUESTIONS ANSWERED. ARMS REMAIN ELEVATED ON PILLOWS, SLIGHT RECLINE TO HIS BACK. SATS GOOD.
--- NOTE | 2020-10-05 19:20 | NUR ---
ASSUMPTION OF CARE RECEIVED REPORT FROM CASANDRA MENCHACA, ASSUMED CARE OF PATIENT. PATIENT INTUBATED, SEDATED AND PARALYZED. VITALS STABLE. NO S/S OF DISTRESS. WILL REVEIW ORDERS AND TREAT PRESCRIBED.
--- NOTE | 2020-10-06 | NUR ---
REASSESSMENT NO ACUTE CHANGES FROM PREVIOUS ASSESSMENT. DRIPS AND VENT SETTINGS UNCHANGED. REPOSITIONED PATIENT TO LEFT SIDE WITH SOFT TURN. O2 SATS DROPPED TO 87%, INCREASED FIO2 TO 100% AND SUCTIONED PATIENT WITH NO CHANGE. REPOSITIONED PATIENT TO BACK WITH HOB AT 30 DEGREES. SATS TO 88%, SLOW TO RECOVER SATS WITH POSITIONING. UNABLE TO ASSESS SKIN TO BACK AND TURN PROPERLY DUE TO PATIENT'S FRAGILE RESPIRATORY RESPONSE. WILL CONTINUE TO MONITOR.
--- NOTE | 2020-10-06 04:00 | NUR ---
REASSESSMENT NO ACUTE CHANGES FROM PREVIOUS ASSESSMENT. PT TOF 4/4, BIS 50-60. VENT SETTINGS REMAIN UNCHANGED WITH FIO2 100%. SATS BETWEEN 90-91%. WILL CONTINUE TO MONITOR.
[2020-10-06 04:16] LABS: BASOPHILS ABSOLUTE AUTO 0.05 K/mm3 (0.00-0.23); BASOPHILS PERCENT AUTO 0 % (0-2); EOSINOPHILS ABSOLUTE AUTO 0.01 K/mm3 (0.00-0.68); EOSINOPHILS PERCENT AUTO 0 % (0-6); Hematocrit 32.5 % (37.0-53.0); Hemoglobin 10.4 g/dL (13.5-17.5); IMMATURE GRAN PERCENT AUTO 7 % (0-1); LYMPHOCYTES ABSOLUTE AUTO 1.64 K/mm3 (0.84-5.20); LYMPHOCYTES PERCENT AUTO 8 % (21-46); MONOCYTES ABSOLUTE AUTO 1.56 K/mm3 (0.16-1.47); MONOCYTES PERCENT AUTO 8 % (4-13); Mean Corpuscular Volume 103 fL (80-100); Mean Platelet Volume 10.9 fL (9.1-12.4); NEUTROPHILS PERCENT AUTO 77 % (41-73); NRBC ABSOLUTE 0.24 K/mm3 (0.00-0.02); NRBC Auto 1.2 /100 WBC (0.0-0.2); Platelet Count 180 K/mm3 (150-400); RDW Coefficient Variation 15.1 % (11.7-14.2); RDW Standard Deviation 56.7 fL (35.1-46.3); Red Blood Cell Count 3.15 M/mm3 (4.30-5.90); White Blood Cell Count 20.16 K/mm3 (4.00-11.30)
[2020-10-06 04:36] LABS: BAND PERCENT MAN 14 % (0-8); BASOPHILS PERCENT MAN 0 % (0-2); EOSINOPHILS PERCENT MAN 0 % (0-6); LYMPHOCYTES PERCENT MAN 5 % (21-46); METAMYELOCYTE PERCENT MAN 4 % (0-0); MONOCYTES PERCENT MAN 1 % (4-13); NEUTROPHILS ABSOLUTE MAN 18.14 K/mm3 (1.96-9.15); SEG NEUTROPHILS PERCENT MAN 76 % (41-73); TOTAL CELLS COUNTED 100
[2020-10-06 04:45] LABS: Bun/Creatinine Ratio 88.8 (12.0-20.0); Calcium, Blood 7.3 mg/dL (8.5-10.1); Creatinine, Blood 1.52 mg/dL (0.60-1.20); Phosphorus, Blood 3.9 mg/dL (2.5-4.9); Potassium, Blood 5.3 mmol/L (3.5-5.5)
--- NOTE | 2020-10-06 06:21 | NUR ---
SHIFT SUMMARY NO ACUTE EVENTS THROUGH NIGHT. PATIENT UNABLE TO TOLERATE REPOSITIONING. DESATS WITH ANY MOVEMENT. VENT SETTINGS REMAIN UNCHANGED WITH FIO2 OF 100%, SATS BETWEEN 88-90%. NIMBEX, PROPOFOL AND FENTANYL INFUSE CHARTED. TOF 4/4, AND BIS 50-60. BLOOD PRESSURE STABLE CHARTED. CONTINUING TO MONITOR AND WILL REPORT TO ONCOMING RN.
--- NOTE | 2020-10-06 07:30 | NUR ---
Received report from veena MENCHACA. Patient is intubated, sedated, and paralyzed. He has 8.0 ET 24 cm at teeth with vent settings of AC 30, TV 400, FiO2 100%, PEEP 29 and sats 88-90. OG in place and has VHP at 15 with water flushes 60ml Q4, Residuals <50. He has 16Fr Ortiz draining to gravity green/yellow urine. SCD's in place bilateal LE's. He has Left upper shest CL infusing Propofol at 65mcg/kg/min, Nimbex at 1.5 mcg/kg/min, NS TKO. BIZ 29, TOF level 7 minmal response.
--- NOTE | 2020-10-06 09:30 | NUR ---
Patient repositioned sats 88-90, no vent setting changes and reduced Propofol to 55 mcg/kg/min. patient converted to A-fib RVR 120-[address] Coats in room assessing and will call and give update, will wait alittle bit to see if he converts on own , and if not 5mg Metoprolol IV. Am Meds given
[2020-10-06 11:04] LABS: Vancomycin, Trough 24.3 ug/mL (5.0-10.0)
--- NOTE | 2020-10-06 11:30 | NUR ---
tGave 5mg Metoprolol at 1030 and he converted back to SR 60-70's and systolic 80-90's while in A-fib and currently 140's and turned propofol back on from standby from ten minutes again. Sats dropped into the 70's and placed supin and he started come back up and is currently mid to high 80's. No vent setting changes.
--- NOTE | 2020-10-06 13:45 | NUR ---
PT RHYTHM NOTED AFIB WITH RATE 120-130'S. BP TRENDING 70-80'S. NOTIFIED. ORDERS GIVEN FOR NEOSYNEPHRINE DRIP AND AMIODARONE BOLUS AND DRIP.
--- NOTE | 2020-10-06 14:00 | NUR ---
Patient remains in A-Fib one teens to 140's. He is on 1 mg/hr Amiodarone. He continues on Jerald-synepherine 100 mcg/min for systolic 70-90 and MAPS >60. We are doing slight hip shifts as her does not tolerate any moving. remains at bedside since 1130. Have had several conversations with her about his care and what we are doing. SCD's remains bilateral LE's. Propofol decreased to 20 mcg/kg/min when converting to A-Fib to assist with systolic increase. Vent Settings remain AC 30, TV 400, FiO2 100%, PEEP 20 sats 86-91%. Nimbex remains 1.0 mcg/kg/min and BIZ 38. Updated Dr Coats.
--- NOTE | 2020-10-06 15:43 | NUR ---
Spiritual care visit conducted. Sam (patient's spouse) is bedside. We talk about her thoughts about her jade and about what the doctors are telling her. She explains that her children and herself want to know everything has been done to help the patient and then when the doctors say they can do no more then they will let him go. "They just want to feel like they did not give up too soon," is what Sam told me about the kids. Sam did admit that she knows how dire it is. Patient expresses both her sorrow and fear and her trust in God. I encourage self-care, normalize her experience and provide therapeutic listening, pastoral camp head counselor and prayer. Patient responds well and shows signs of increased peace and voices appreciation for the visit. I will continue to try to help Sam navigate through the medical decision making process.
--- NOTE | 2020-10-06 16:16 | NUR ---
Increased Jerald-synepherine to 150 mcg/min per Dr Coats for continued systolic 70-80. Propofol on standby for last 30 minutes. No vent setting changes for last note and sats 88-90%. No other gtt setting changes other than noted. Remains in A-Fib 112-126. remains at bedside.
--- NOTE | 2020-10-06 17:20 | NUR ---
1650-Systolic remains low 70's and talked with Dr Coats and stated to titrate Jerald-synepherine to 200 mcg/min and systolic was continuely dropping, at bedside and sons outside window. Pressure dropped and then he pascual down to Zero, pronounced at 1655. stated Kush . She has remains at bedside currently.
== END 2020-10-06 16:55 | DRG 207 ==
LOC: ER 09:11 → PCU 11:25 → ICUW 11:25 → PCU 12:00 → ICUW 09-24 15:38
PROVIDERS: Emergency Medicine; Internal Medicine; Internal Medicine Critical Care Medicine; Internal Medicine Pulmonary Disease; Nurse Practitioner Acute Care; Pharmacist; ADMIT Internal Medicine
PROC: XW033E5 Introduction of Remdesivir Anti-infective into Peripheral Vein, Percutaneous Approach, New Technology Group 5 (ICD-10-PCS; principal; 2020-09-22)
PROC: 3E043XZ Introduction of Vasopressor into Central Vein, Percutaneous Approach (ICD-10-PCS; 2020-09-22)
PROC: 5A1955Z Respiratory Ventilation, Greater than 96 Consecutive Hours (ICD-10-PCS; 2020-09-27)
PROC: 0BH18EZ Insertion of Endotracheal Airway into Trachea, Via Natural or Artificial Opening Endoscopic (ICD-10-PCS; 2020-09-27)
PROC: 5A09357 Assistance with Respiratory Ventilation, Less than 24 Consecutive Hours, Continuous Positive Airway Pressure (ICD-10-PCS; 2020-10-01)
PROC: 02HV33Z Insertion of Infusion Device into Superior Vena Cava, Percutaneous Approach (ICD-10-PCS; 2020-10-02)
PROC: 03HB33Z Insertion of Infusion Device into Right Radial Artery, Percutaneous Approach (ICD-10-PCS; 2020-10-02)
DX: U07.1 COVID-19 (principal); J12.82 Pneumonia due to coronavirus disease 2019; J96.01 Acute respiratory failure with hypoxia; N17.9 Acute kidney failure, unspecified; Z66 Do not resuscitate; I10 Essential (primary) hypertension; E78.5 Hyperlipidemia, unspecified; I35.0 Nonrheumatic aortic (valve) stenosis; K21.9 Gastro-esophageal reflux disease without esophagitis; Z68.39 Body mass index [BMI] 39.0-39.9, adult; Z79.82 Long term (current) use of aspirin; I25.10 Atherosclerotic heart disease of native coronary artery without angina pectoris; G89.4 Chronic pain syndrome; M19.90 Unspecified osteoarthritis, unspecified site; E86.0 Dehydration; Z51.5 Encounter for palliative care; Z78.1 Physical restraint status; E87.5 Hyperkalemia; I95.9 Hypotension, unspecified; R00.1 Bradycardia, unspecified; I48.91 Unspecified atrial fibrillation
CPT/HCPCS: 31500; 31720; 36415; 36556; 36600; 36620; 51703; 71045; 80048; 80053; 80069; 80202; 81001; 82803; 82947; 83735; 83880; 84100; 84484; 85025; 85027; 85379; 93005; 93010; 93971; 94002; 94003; 94640; 94660; 94762; 96361; 96365; 96375; 99285-25; A9270; C1751; J0282; J0360; J0461; J1100; J1650; J1940; J2250; J2270; J2370; J2704; J2765; J2920; J2930; J3010; J3370; J7030; J7040; J7050; J7060